=== PATIENT | female | born 1935 | race Caucasian/White ===

== ENCOUNTER 2017-08-08 19:49 | Inpatient (IN) | payer MEDICARE, MEDICAID ==
[~2017-08-08] VITALS: Ht 147.3 cm; Wt 51.7 kg
[2017-08-08] MEDS ORDERED: AMIO400T5 PO (20:09)
[2017-08-08] MEDS ORDERED: FLUT1BLS IH (20:09)
[2017-08-08] MEDS ORDERED: ACET325T53 PO (20:09)
[2017-08-08] MEDS ORDERED: TOPI50TA PO (20:09)
[2017-08-08] MEDS ORDERED: OXCA150T5 PO (20:09)
[2017-08-08] MEDS ORDERED: CARV3.12 PO (20:09)
[2017-08-08] MEDS ORDERED: ASPI81TA31 PO (20:09)
[2017-08-08] MEDS ORDERED: MELA3TAB PO (20:09)
[2017-08-08] MEDS ORDERED: MAGN400O6 PO (20:09)
[2017-08-08] MEDS ORDERED: ENAL2.5T PO (20:09)
[2017-08-08] MEDS ORDERED: DOCU100C36 PO (20:09)
[2017-08-08] MEDS ORDERED: DONE5TAB7 PO (20:09)
[2017-08-08] MEDS ORDERED: CHOL100062 PO (20:09)
--- NOTE | 2017-08-08 20:09 | NUR ---
Pt margarita from [facility] for medical clearance prior to admission to MHU. Pt already place on a 5150. Pt ambulated to and from with steady shuffled gait. Pt now resting in position of comfort for self. No obvious signs of distress at this time.
--- NOTE | 2017-08-08 20:15 | NUR ---
Security at bedside to keep pt from wandering and re-direct to staying in bed
[2017-08-08 20:23] LABS: *BILIRUBIN,URIN NEGATIVE (NEGATIVE); *BLOOD, URINE 2+ (NEGATIVE); *CLARITY,URINE CLOUDY (CLEAR); *COLOR,URINE YELLOW (YELLOW); *KETONES,URINE NEGATIVE (NEGATIVE); *PROTEIN,URINE 1+ (NEGATIVE); *UROBILINOGEN,URINE 0.2 E.U./dl (NORMAL); LEUKOCYTE ESTERASE ,URINE 1+ (NEGATIVE); NITRITE, URINE NEGATIVE (NEGATIVE); UGLUCOSE NEGATIVE (NEGATIVE)
[2017-08-08 20:25] LABS: BASOPHILS # (AUTO) 0.1 K/uL (0.0-8.0); EOSINOPHILS # (AUTO) 0.1 K/uL (0.0-0.7); EOSINOPHILS % (AUTO) 2.5 % (0.0-7.0); HEMATOCRIT 33.3 % (31.2-41.9); HEMOGLOBIN 11.2 g/dL (10.9-14.3); LYMPHOCYTES # (AUTO) 0.8 K/uL (20.0-40.0); LYMPHOCYTES % (AUTO) 13.8 % (20.5-51.5); MEAN CORPUSCULAR HEMOGLOBIN 31.7 uug (24.7-32.8); MEAN CORPUSCULAR HGB CONC 34 g/dL (32.3-35.6); MEAN CORPUSCULAR VOLUME 94.3 fL (75.5-95.3); MONOCYTES # (AUTO) 0.4 K/uL (2.0-10.0); MONOCYTES % (AUTO) 7.3 % (0.0-11.0); NEUTROPHILS # (AUTO) 4.2 K/uL (1.8-8.9); NEUTROPHILS % (AUTO) 75.4 % (38.5-71.5); PLATELET COUNT (AUTO) 131 K/uL (179-408); RED BLOOD CELL COUNT(AUTO) 3.53 MIL/uL (3.63-4.92); WHITE BLOOD COUNT (AUTO) 5.6 K/uL (3.8-11.8)
[2017-08-08 20:34] LABS: BACTERIA,URINE MANY /HPF (NONE SEEN); SQUAMOUS EPITHELIAL CELL,UR MANY /HPF (NONE SEEN)
[2017-08-08 20:36] LABS: ALANINE AMINOTRANSFERASE 20 U/L (14-59); ALKALINE PHOSPHATASE 62 U/L (50-136); ASPARTATE AMINOTRANSFERASE 17 U/L (15-37); BILIRUBIN,DIRECT 0.1 mg/dL (0.0-0.2); BILIRUBIN,TOTAL 0.3 mg/dL (0.2-1.0); CARBON DIOXIDE 28 mmol/L (21-32); CHLORIDE 102 mmol/L (98-107); CREATININE 1.2 mg/dL (0.6-1.3); GLUCOSE 106 mg/dL (74-106); TOTAL PROTEIN, SERUM 7.1 g/dL (6.4-8.2); UREA NITROGEN, BLOOD 29 mg/dL (7-18)
[2017-08-08 20:37] LABS: ACETAMINOPHEN < 2.0 ug/mL (10-30)
[2017-08-08 20:39] LABS: ETHANOL < 3 MG/DL (0-0)
[2017-08-08 20:46] LABS: *AMPHETAMINE, URINE NEGATIVE (NEGATIVE); *BARBITURATE, URINE NEGATIVE (NEGATIVE); *CANNABINOID, URINE NEGATIVE (NEGATIVE); *COCCAINE, URINE NEGATIVE (NEGATIVE); *OPIATE, URINE NEGATIVE (NEGATIVE); *PHENCYCLIDINE SCREEN,URINE NEGATIVE (NEGATIVE)
[2017-08-08] MEDS ORDERED: LEVOFLOXACIN 750 MG TABLET PO ONE (21:00)
--- NOTE | 2017-08-08 21:05 | NUR ---
Pt medically cleared for admission. Attempted to call report, RN unable at this time awaiting call back
[2017-08-08] MEDS ORDERED: LEVOFLOXACIN 750 MG TABLET ONE (21:18)
--- NOTE | 2017-08-08 21:23 | NUR ---
Report called to SINTIA Abarca. Preparing to transfer pt to the floor
--- NOTE | 2017-08-08 22:40 | NUR ---
GPS:Admitted 82 year old [place] female regionally from [facility] for medical clearance prior to admission to MHU.patient arrived via w/c from er via er staff. Pt already place on a 5150. a/o x1 to name only. Pt ambulated to and from br with steady shuffled gait. Pt now resting in position of comfort for self. No obvious signs of distress at this time. v/s wnl. daughter ariadna made aware. assisted patient in bed. continue monitoring for safety.
[2017-08-08 23:43] VITALS: BP 116/52
[2017-08-08] MEDS ORDERED: MAGNESIUM HYDROXIDE 30 ML LIQUID UDC PO PRN (23:45)
[2017-08-08] MEDS ORDERED: MAG HYDROX/AL HYDROX/SIMETH 30 ML LIQUID UDC PO PRN (23:45)
[2017-08-08] MEDS ORDERED: TEMAZEPAM 7.5 MG CAPSULE PO PRN (23:45)
[2017-08-09] MEDS: ACETAMINOPHEN 325 MG TABLET PO PRN ×3 (00:30→20:34)
[2017-08-09] MEDS ORDERED: ACETAMINOPHEN 325 MG TABLET ONE (00:46)
[2017-08-09] MEDS ORDERED: TEMAZEPAM 7.5 MG CAPSULE ONE (00:46)
--- NOTE | 2017-08-09 06:52 | NUR ---
GPS: REMAIN CONFUSED. SLEPT 6 HRS THROUGH THE NIGHT. REFUSED SHOWERED THIS MORNING. CONTINENT OF B+B. NO AGITATION NOTED AT THIS TIME. RESTING IN HER ROOM COMFORTABLY.
[2017-08-09 07:30] VITALS: BP 106/46
[2017-08-09] MEDS: CARVEDILOL 3.125 MG TABLET PO SCH ×2 (08:00→17:09)
[2017-08-09] MEDS: DOCUSATE SODIUM 100 MG CAPSULE PO SCH ×2 (08:03→16:05)
[2017-08-09] MEDS: ASPIRIN 81 MG TAB.CHEW PO SCH (08:03)
[2017-08-09] MEDS: AMIODARONE HCL 200 MG TABLET PO SCH (08:04)
[2017-08-09] MEDS: CHOLECALCIFEROL 1,000 UNIT TABLET PO SCH (08:04)
[2017-08-09] MEDS: ENALAPRIL 2.5 MG TABLET PO SCH (08:04)
[2017-08-09] MEDS: FLUTICASONE/VILANTEROL 1 EACH BLST.W.DEV IH SCH (08:22)
--- NOTE | 2017-08-09 08:29 | NUR ---
pt received walking in the hallway c/o headache ,alert to her self .v/s are stable ,all needs are met ,we will continue to monitor
[2017-08-09] MEDS ORDERED: Medication Not On Formulary EA (Amiodarone Hcl (Cordarone) 400 MG) PO SCH (09:00)
[2017-08-09] MEDS ORDERED: INSULIN REGULAR, HUMAN 300 UNIT/3 ML VIAL SQ PRN (10:15)
[2017-08-09] MEDS ORDERED: CEPHALEXIN MONOHYDRATE 500 MG CAPSULE PO SCH (10:15)
[2017-08-09] MEDS ORDERED: DEXTROSE 50% 50 ML DISP.SYRIN IV PRN (10:15)
[2017-08-09] MEDS: TOPIRAMATE 25 MG TABLET PO SCH ×3 (10:55→16:05)
[2017-08-09] MEDS: QUETIAPINE FUMARATE 25 MG TABLET PO SCH ×3 (10:55→16:05)
[2017-08-09] MEDS: OXCARBAZEPINE 150 MG TABLET PO SCH ×3 (10:55→16:05)
[2017-08-09] MEDS: BLOOD SUGAR DIAGNOSTIC 1 EACH STRIP VI SCH ×3 (11:13→20:33)
[2017-08-09] MEDS: CEPHALEXIN MONOHYDRATE 250 MG CAPSULE PO SCH ×3 (11:38→21:28)
[2017-08-09 15:00] VITALS: BP 122/46
[2017-08-09 20:00] VITALS: BP 136/60
[2017-08-09] MEDS: DONEPEZIL 5 MG TABLET PO SCH (20:33)
--- NOTE | 2017-08-09 20:34 | NUR ---
GPS: PATIENT C/O HEADACHE. TYLENOL 650 MG PO GIVEN.
[2017-08-09] MEDS: MELATONIN 3 MG TABLET PO SCH (20:54)
[2017-08-10] MEDS: CEPHALEXIN MONOHYDRATE 250 MG CAPSULE PO SCH ×3 (06:07→21:39)
--- NOTE | 2017-08-10 06:30 | NUR ---
GPS: REMAIN CONFUSED. SLEPT 5 HRS THROUGH THE NIGHT AFTER SLEEPING MEDICATION GIVEN. REFUSED SHOWERED THIS MORNING. CONTINENT OF B+B. NO AGITATION NOTED AT THIS TIME. RESTING IN HER ROOM COMFORTABLY.
[2017-08-10] MEDS: BLOOD SUGAR DIAGNOSTIC 1 EACH STRIP VI SCH ×3 (06:39→16:30)
[2017-08-10 07:30] VITALS: BP 126/49
[2017-08-10] MEDS: CARVEDILOL 3.125 MG TABLET PO SCH ×2 (08:00→17:13)
[2017-08-10] MEDS: TOPIRAMATE 25 MG TABLET PO SCH ×3 (08:48→17:14)
[2017-08-10] MEDS: QUETIAPINE FUMARATE 25 MG TABLET PO SCH ×3 (08:48→17:10)
[2017-08-10] MEDS: CHOLECALCIFEROL 1,000 UNIT TABLET PO SCH (08:48)
[2017-08-10] MEDS: AMIODARONE HCL 200 MG TABLET PO SCH (08:50)
[2017-08-10] MEDS: ASPIRIN 81 MG TAB.CHEW PO SCH (08:50)
[2017-08-10] MEDS: DOCUSATE SODIUM 100 MG CAPSULE PO SCH ×2 (08:50→17:14)
[2017-08-10] MEDS: OXCARBAZEPINE 150 MG TABLET PO SCH ×3 (08:56→17:14)
[2017-08-10] MEDS: FLUTICASONE/VILANTEROL 1 EACH BLST.W.DEV IH SCH (08:58)
[2017-08-10] MEDS: ENALAPRIL 2.5 MG TABLET PO SCH (09:00)
[2017-08-10] MEDS: ACETAMINOPHEN 325 MG TABLET PO PRN (09:36)
[2017-08-10] MEDS: CLONAZEPAM 0.5 MG TABLET PO PRN (13:09)
[2017-08-10 20:44] VITALS: BP 113/50
[2017-08-10] MEDS: DONEPEZIL 5 MG TABLET PO SCH (21:31)
[2017-08-10] MEDS: MELATONIN 3 MG TABLET PO SCH (21:31)
[2017-08-11] MEDS: CEPHALEXIN MONOHYDRATE 250 MG CAPSULE PO SCH ×3 (06:11→20:01)
[2017-08-11] MEDS: BLOOD SUGAR DIAGNOSTIC 1 EACH STRIP VI SCH (06:40)
[2017-08-11 07:30] VITALS: BP 134/62
[2017-08-11 07:32] LABS: BASOPHILS % (AUTO) 1.3 % (0.0-2.0); EOSINOPHILS # (AUTO) 0.2 K/uL (0.0-0.7); EOSINOPHILS % (AUTO) 4.7 % (0.0-7.0); HEMATOCRIT 33.4 % (31.2-41.9); HEMOGLOBIN 11.3 g/dL (10.9-14.3); LYMPHOCYTES # (AUTO) 1.2 K/uL (20.0-40.0); LYMPHOCYTES % (AUTO) 31.6 % (20.5-51.5); MEAN CORPUSCULAR HEMOGLOBIN 31.7 uug (24.7-32.8); MEAN CORPUSCULAR HGB CONC 34 g/dL (32.3-35.6); MONOCYTES # (AUTO) 0.3 K/uL (2.0-10.0); MONOCYTES % (AUTO) 7.6 % (0.0-11.0); NEUTROPHILS % (AUTO) 54.8 % (38.5-71.5); PLATELET COUNT (AUTO) 118 K/uL (179-408); RED BLOOD CELL COUNT(AUTO) 3.56 MIL/uL (3.63-4.92); WHITE BLOOD COUNT (AUTO) 3.7 K/uL (3.8-11.8)
[2017-08-11 07:50] LABS: ALANINE AMINOTRANSFERASE 17 U/L (14-59); ALKALINE PHOSPHATASE 56 U/L (50-136); ASPARTATE AMINOTRANSFERASE 16 U/L (15-37); BILIRUBIN,TOTAL 0.3 mg/dL (0.2-1.0); CARBON DIOXIDE 28 mmol/L (21-32); CHLORIDE 99 mmol/L (98-107); GLUCOSE 97 mg/dL (74-106); MAGNESIUM 2.1 mg/dL (1.8-2.4); PHOSPHOROUS 3.9 mg/dL (2.5-4.9); POTASSIUM 4.3 mmol/L (3.5-5.1); TOTAL PROTEIN, SERUM 6.5 g/dL (6.4-8.2); UREA NITROGEN, BLOOD 23 mg/dL (7-18)
[2017-08-11] MEDS: CARVEDILOL 3.125 MG TABLET PO SCH ×3 (08:00→17:16)
[2017-08-11] MEDS: QUETIAPINE FUMARATE 25 MG TABLET PO SCH ×4 (08:40→16:56)
[2017-08-11] MEDS: OXCARBAZEPINE 150 MG TABLET PO SCH ×4 (08:40→16:56)
[2017-08-11] MEDS: CHOLECALCIFEROL 1,000 UNIT TABLET PO SCH (08:40)
[2017-08-11] MEDS: DOCUSATE SODIUM 100 MG CAPSULE PO SCH ×3 (08:41→16:56)
[2017-08-11] MEDS: AMIODARONE HCL 200 MG TABLET PO SCH ×2 (08:41→09:00)
[2017-08-11] MEDS: ASPIRIN 81 MG TAB.CHEW PO SCH ×2 (08:41→09:00)
[2017-08-11] MEDS: ENALAPRIL 2.5 MG TABLET PO SCH (08:44)
[2017-08-11] MEDS: TOPIRAMATE 25 MG TABLET PO SCH ×4 (08:44→16:56)
[2017-08-11] MEDS: FLUTICASONE/VILANTEROL 1 EACH BLST.W.DEV IH SCH (08:44)
--- NOTE | 2017-08-11 15:19 | NUR ---
Initial DC Plan: Patient currently resides at [facility] [[address] [place] [address]; ]. ROSALINDA spoke with Emily at [facility] who stated the facility would prefer the patient did not return upon discharge. ROSALINDA will follow up with MD, patient, and patient's daughter Marilyn [[phone]] to discuss most appropriate discharge plans. SW will form a safe and proper discharge.
--- NOTE | 2017-08-11 15:26 | NUR ---
Firearms Reporting: ROSALINDA submitted Mental Health Report to [employer] on 08/11.
[2017-08-11 15:53] VITALS: BP 120/49
[2017-08-11] MEDS: DONEPEZIL 5 MG TABLET PO SCH (19:59)
[2017-08-11] MEDS: MELATONIN 3 MG TABLET PO SCH (19:59)
[2017-08-11 20:00] VITALS: BP 112/48
[2017-08-12] MEDS: CEPHALEXIN MONOHYDRATE 250 MG CAPSULE PO SCH ×4 (06:00→22:00)
[2017-08-12] MEDS: BLOOD SUGAR DIAGNOSTIC 1 EACH STRIP VI SCH (06:39)
[2017-08-12 07:30] VITALS: BP 139/55
[2017-08-12] MEDS: CARVEDILOL 3.125 MG TABLET PO SCH ×2 (08:00→17:24)
[2017-08-12] MEDS: TOPIRAMATE 25 MG TABLET PO SCH ×3 (08:50→17:00)
[2017-08-12] MEDS: AMIODARONE HCL 200 MG TABLET PO SCH (08:50)
[2017-08-12] MEDS: QUETIAPINE FUMARATE 25 MG TABLET PO SCH ×3 (08:50→16:34)
[2017-08-12] MEDS: FLUTICASONE/VILANTEROL 1 EACH BLST.W.DEV IH SCH (08:50)
[2017-08-12] MEDS: DOCUSATE SODIUM 100 MG CAPSULE PO SCH ×2 (08:50→17:00)
[2017-08-12] MEDS: ASPIRIN 81 MG TAB.CHEW PO SCH (08:50)
[2017-08-12] MEDS: OXCARBAZEPINE 150 MG TABLET PO SCH ×3 (08:51→17:00)
[2017-08-12] MEDS: ENALAPRIL 2.5 MG TABLET PO SCH (08:51)
[2017-08-12] MEDS: CHOLECALCIFEROL 1,000 UNIT TABLET PO SCH (08:51)
[2017-08-12] MEDS: CLONAZEPAM 0.5 MG TABLET PO PRN (16:33)
--- NOTE | 2017-08-12 18:25 | NUR ---
SPOKE WITH PATIENT'DAUGHTER Marilyn to obtain authorization of Detain and treat for LPS conservatee.still waiting for her to bring in.
[2017-08-12 20:10] VITALS: BP 93/51
[2017-08-12] MEDS: MELATONIN 3 MG TABLET PO SCH (21:00)
[2017-08-12] MEDS: DONEPEZIL 5 MG TABLET PO SCH (21:00)
--- NOTE | 2017-08-12 22:33 | NUR ---
PATIENT RECEIVED IN BED AWAKE. PATIENT ALERT/ORIENTED X1.FORGETFUL,CONFUSED,DISORIENTED,ANXIOUS AND RESTLESS UPON APPROACH.PATIENT IS EASILY ANGRY/ANXIOUS/IRRITABLE WHEN REDIRECTED.REQUIRES FREQUENT.REALITY, ORIENTATION, AND FREQUENT REDIRECTION.UNCOOPERATIVE WITH CARE. NON COMPLAINT WITH HS MEDICATION EXPLAINED THE IMPORTANCE OF TAKING MEDICATION CONTINUES TO REFUSE. BED IN LOWEST POSITION, BED LOCKED, AND BED ALARM ON WHILE IN BED. .
[2017-08-13] MEDS: BLOOD SUGAR DIAGNOSTIC 1 EACH STRIP VI SCH ×2 (06:00→08:59)
[2017-08-13] MEDS: ACETAMINOPHEN 325 MG TABLET PO PRN ×2 (06:38→18:28)
[2017-08-13] MEDS: CEPHALEXIN MONOHYDRATE 250 MG CAPSULE PO SCH ×3 (06:39→22:00)
--- NOTE | 2017-08-13 07:31 | NUR ---
ACCUCHECK RENDERED AT 0600 WITH RESULTS OF 93MG/DL, UNABLE TO SCAN ON EMAR
[2017-08-13 08:00] VITALS: BP 122/51
[2017-08-13] MEDS: ASPIRIN 81 MG TAB.CHEW PO SCH (08:27)
[2017-08-13] MEDS: OXCARBAZEPINE 150 MG TABLET PO SCH ×3 (08:27→18:10)
[2017-08-13] MEDS: QUETIAPINE FUMARATE 25 MG TABLET PO SCH ×3 (08:27→18:10)
[2017-08-13] MEDS: DOCUSATE SODIUM 100 MG CAPSULE PO SCH ×2 (08:27→18:10)
[2017-08-13] MEDS: CHOLECALCIFEROL 1,000 UNIT TABLET PO SCH (08:27)
[2017-08-13] MEDS: TOPIRAMATE 25 MG TABLET PO SCH ×3 (08:27→18:10)
[2017-08-13] MEDS: AMIODARONE HCL 200 MG TABLET PO SCH (08:32)
[2017-08-13] MEDS: FLUTICASONE/VILANTEROL 1 EACH BLST.W.DEV IH SCH (08:35)
[2017-08-13] MEDS: ENALAPRIL 2.5 MG TABLET PO SCH (08:37)
--- NOTE | 2017-08-13 09:20 | NUR ---
AGITATED RESTLESS INTRUSIVE HYPERVOCAL ANNOYED AT NOT BEING ABLE TO REACH DAUGHTER DESPITE HER CALLING AND LEAVING MESSAGES UNABLE TO REDIRECT MEDICATED WITH KLONOPIN ORDERED HAD MUCH DIFFICULTY TAKING THE MEDICINES STATED DOES NOT NEED ANY MEDICATIONS AT THIS TIME.
[2017-08-13] MEDS: CLONAZEPAM 0.5 MG TABLET PO PRN ×2 (09:25→21:21)
--- NOTE | 2017-08-13 14:02 | NUR ---
PATIENT IS AWAKE AT THIS TIME BUT REFUSED TO TAKE HER DUE MEDICATIONS AND WENT BACK TO BED AGAIN STATED THAT WE ARE GIVING HER TOO MANY MEDICATIONS.
[2017-08-13 15:50] VITALS: BP 141/67
--- NOTE | 2017-08-13 18:28 | NUR ---
MEDICATED WITH TYLENOL FOR HEADACHE PER HER REQUEST.PATIENT IS WALKING BACK AND FORTH CONFUSED AND DISORIENTED AT THIS TIME.
[2017-08-13 19:00] VITALS: BP 111/56
[2017-08-13] MEDS: MELATONIN 3 MG TABLET PO SCH (20:11)
[2017-08-13] MEDS: DONEPEZIL 5 MG TABLET PO SCH (20:11)
[2017-08-13 21:59] VITALS: BP 121/66
[2017-08-14] MEDS: BLOOD SUGAR DIAGNOSTIC 1 EACH STRIP VI SCH (06:00)
[2017-08-14] MEDS: CEPHALEXIN MONOHYDRATE 250 MG CAPSULE PO SCH ×3 (06:00→21:23)
--- NOTE | 2017-08-14 06:42 | NUR ---
ACCUCHECK RENDERED AT 0640 WITH RESULTS OF 104 MG/DL, UNABLE TO SCAN ON EMAR
[2017-08-14] MEDS: ASPIRIN 81 MG TAB.CHEW PO SCH (09:00)
[2017-08-14] MEDS: ENALAPRIL 2.5 MG TABLET PO SCH (09:00)
[2017-08-14] MEDS: FLUTICASONE/VILANTEROL 1 EACH BLST.W.DEV IH SCH (09:00)
[2017-08-14] MEDS: AMIODARONE HCL 200 MG TABLET PO SCH (09:00)
[2017-08-14] MEDS: DOCUSATE SODIUM 100 MG CAPSULE PO SCH ×2 (09:00→17:00)
[2017-08-14] MEDS: CHOLECALCIFEROL 1,000 UNIT TABLET PO SCH (09:00)
[2017-08-14] MEDS: QUETIAPINE FUMARATE 25 MG TABLET PO SCH ×3 (09:00→17:52)
[2017-08-14 10:58] VITALS: BP 94/50
[2017-08-14] MEDS: OXCARBAZEPINE 150 MG TABLET PO SCH ×3 (11:12→17:53)
[2017-08-14] MEDS: ACETAMINOPHEN 325 MG TABLET PO PRN ×2 (11:12→19:53)
[2017-08-14] MEDS: TOPIRAMATE 25 MG TABLET PO SCH ×3 (11:13→17:53)
--- NOTE | 2017-08-14 13:19 | NUR ---
Gps/Agricultural Plow Operator- Hesitantcy in taking her routine medications, anxious, pacing back and forth the hallway, pushing and checking doors. B/P re checked 130/65 HR 69, occ. dry coughing noted. Safety reviewed and emphasized.
[2017-08-14 15:00] VITALS: BP 120/77
--- NOTE | 2017-08-14 18:35 | NUR ---
Gps/Emery Grinder- Constantly on the phone intrusive , difficulty redirecting patient, wanting to to call and talk to her daughter Marilyn or her son Matthew, after she just talked to them. Anxious, constant redirections.
[2017-08-14 20:00] VITALS: BP 110/51
[2017-08-14] MEDS: MELATONIN 3 MG TABLET PO SCH (21:59)
[2017-08-14] MEDS: DONEPEZIL 5 MG TABLET PO SCH (21:59)
--- NOTE | 2017-08-14 22:00 | NUR ---
received to care, appearing anxious, pacing the hallway, needy, and difficult to redirect. PRN tylenol was given at 1952 for headache, which was relieved, by 2099. she was also selective with her medications, taking only keflex, before going to bed. as of 2199, she appears to be asleep. no distress noted. will continue to monitor closely.
[2017-08-15] MEDS: BLOOD SUGAR DIAGNOSTIC 1 EACH STRIP VI SCH (06:00)
[2017-08-15] MEDS: CEPHALEXIN MONOHYDRATE 250 MG CAPSULE PO SCH ×2 (06:28→14:00)
--- NOTE | 2017-08-15 06:44 | NUR ---
AM accucheck is 94.
--- NOTE | 2017-08-15 06:49 | NUR ---
slept 9.5 hours
[2017-08-15 07:30] VITALS: BP 130/79
[2017-08-15] MEDS: ENALAPRIL 2.5 MG TABLET PO SCH (09:00)
[2017-08-15] MEDS: CHOLECALCIFEROL 1,000 UNIT TABLET PO SCH (09:00)
[2017-08-15] MEDS: DOCUSATE SODIUM 100 MG CAPSULE PO SCH ×2 (09:00→17:00)
[2017-08-15] MEDS: FLUTICASONE/VILANTEROL 1 EACH BLST.W.DEV IH SCH (09:00)
[2017-08-15] MEDS: QUETIAPINE FUMARATE 25 MG TABLET PO SCH ×3 (09:00→17:00)
[2017-08-15] MEDS: AMIODARONE HCL 200 MG TABLET PO SCH (09:00)
[2017-08-15] MEDS: OXCARBAZEPINE 150 MG TABLET PO SCH ×3 (09:00→17:00)
[2017-08-15] MEDS: TOPIRAMATE 25 MG TABLET PO SCH ×3 (09:00→17:00)
[2017-08-15] MEDS: ASPIRIN 81 MG TAB.CHEW PO SCH (09:00)
--- NOTE | 2017-08-15 12:24 | NUR ---
DC Note: Patient will be discharged to [facility] [[address] [place] [address]; ] via ambulance. Spoke with patient's daughter/conservator, Marilyn ([phone]) who is aware and agreeable with discharge plans. Patient is aware and agreeable with discharge plans. Patient will follow-up at the facility with Dr. Thompson (Transportation Services Representative) and Dr. Sam (Psychiatrist).
[2017-08-15 15:25] VITALS: BP 143/62
--- NOTE | 2017-08-15 18:20 | NUR ---
Pt left unit with all noted belongings. No aggressive or combative behavior. Very confused and uncooperative. Extensive redirection required and prompting to sit on EMT gurney. V/S stable. Denies pain or discomfort at this time. Left with all noted belongings and paperwork. In no acute distress.
== END 2017-08-15 18:22 | DRG 885 ==
LOC: ER 19:49 → GPS 22:24
PROVIDERS: ADMIT Psychiatry & Neurology Psychiatry; ATTEND Internal Medicine
DX: F31.9 Bipolar disorder, unspecified (principal); F02.81 Dementia in other diseases classified elsewhere, unspecified severity, with behavioral disturbance; E11.65 Type 2 diabetes mellitus with hyperglycemia; E11.40 Type 2 diabetes mellitus with diabetic neuropathy, unspecified; D69.6 Thrombocytopenia, unspecified; G30.9 Alzheimer's disease, unspecified; N39.0 Urinary tract infection, site not specified; F23 Brief psychotic disorder; I48.0 Paroxysmal atrial fibrillation; Z96.21 Cochlear implant status; E78.5 Hyperlipidemia, unspecified; I25.119 Atherosclerotic heart disease of native coronary artery with unspecified angina pectoris; Z79.82 Long term (current) use of aspirin; Z79.899 Other long term (current) drug therapy; F17.200 Nicotine dependence, unspecified, uncomplicated; I11.9 Hypertensive heart disease without heart failure; F41.9 Anxiety disorder, unspecified; D72.819 Decreased white blood cell count, unspecified; J44.9 Chronic obstructive pulmonary disease, unspecified
CPT/HCPCS: 36415; 70030-TC; 71045; 80307; 83735; 84100; 84443; 85025; 87086; 93005; A4663; G0480; G0480-TC; J1815

== ENCOUNTER 2018-01-08 12:03 | Inpatient (IN) | payer MEDICARE, MEDICAID ==
[~2018-01-08] VITALS: Ht 152.4 cm; Wt 55.3 kg
[~2018-01-08 12:03] MED LIST: ACET325T53 PO; AMIO400T5 PO; ASPI81TA31 PO; CARV3.12 PO; CHOL100062 PO; DOCU100C36 PO; DONE5TAB7 PO; ENAL2.5T PO; FLUT1BLS IH; MAGN400O6 PO; MELA3TAB PO; OXCA150T5 PO; TOPI50TA PO
[2018-01-08] MEDS ORDERED: QUET50TA PO (12:28)
[2018-01-08] MEDS ORDERED: NA P133E RC (12:28)
[2018-01-08] MEDS ORDERED: MAG355OR18 PO (12:28)
[2018-01-08] MEDS ORDERED: CHOL20004 PO (12:28)
[2018-01-08] MEDS ORDERED: MULT-213 PO (12:28)
--- NOTE | 2018-01-08 12:33 | NUR ---
Pt is confused and agitated and constantly wondering out of room (4), no sitter available, security called for 1:1 observation for pt safety.
[2018-01-08 12:34] LABS: BASOPHILS % (AUTO) 1.2 % (0.0-2.0); EOSINOPHILS # (AUTO) 0.1 K/uL (0.0-0.7); EOSINOPHILS % (AUTO) 2.5 % (0.0-7.0); HEMATOCRIT 33.6 % (31.2-41.9); HEMOGLOBIN 11.5 g/dL (10.9-14.3); LYMPHOCYTES # (AUTO) 1.2 K/uL (20.0-40.0); LYMPHOCYTES % (AUTO) 28.9 % (20.5-51.5); MEAN CORPUSCULAR HEMOGLOBIN 32.6 uug (24.7-32.8); MEAN CORPUSCULAR HGB CONC 34 g/dL (32.3-35.6); MEAN CORPUSCULAR VOLUME 95.3 fL (75.5-95.3); MONOCYTES # (AUTO) 0.2 K/uL (2.0-10.0); MONOCYTES % (AUTO) 5.6 % (0.0-11.0); NEUTROPHILS # (AUTO) 2.6 K/uL (1.8-8.9); NEUTROPHILS % (AUTO) 61.8 % (38.5-71.5); PLATELET COUNT (AUTO) 167 K/uL (179-408); RED BLOOD CELL COUNT(AUTO) 3.52 MIL/uL (3.63-4.92); WHITE BLOOD COUNT (AUTO) 4.2 K/uL (3.8-11.8)
[2018-01-08 12:39] LABS: *BILIRUBIN,URIN NEGATIVE (NEGATIVE); *BLOOD, URINE Trace-intact (NEGATIVE); *CLARITY,URINE CLEAR (CLEAR); *COLOR,URINE YELLOW (YELLOW); *KETONES,URINE NEGATIVE (NEGATIVE); *PROTEIN,URINE NEGATIVE (NEGATIVE); *UROBILINOGEN,URINE 0.2 E.U./dl (NORMAL); LEUKOCYTE ESTERASE ,URINE 1+ (NEGATIVE); NITRITE, URINE NEGATIVE (NEGATIVE); UGLUCOSE NEGATIVE (NEGATIVE)
[2018-01-08 12:43] LABS: CARBON DIOXIDE 28 mmol/L (21-32); CHLORIDE 101 mmol/L (98-107); GLUCOSE 129 mg/dL (74-106); POTASSIUM 4.6 mmol/L (3.5-5.1); UREA NITROGEN, BLOOD 20 mg/dL (7-18)
[2018-01-08 12:48] LABS: ACETAMINOPHEN < 2.0 ug/mL (10-30); ALANINE AMINOTRANSFERASE 22 U/L (14-59); ALKALINE PHOSPHATASE 58 U/L (50-136); ASPARTATE AMINOTRANSFERASE 16 U/L (15-37); BILIRUBIN,DIRECT 0.1 mg/dL (0.0-0.2); BILIRUBIN,TOTAL 0.3 mg/dL (0.2-1.0); TOTAL PROTEIN, SERUM 6.8 g/dL (6.4-8.2)
[2018-01-08 12:52] LABS: ETHANOL < 3 MG/DL (0-0)
--- NOTE | 2018-01-08 12:52 | NUR ---
THA JACQUES WAS CALLED TO EVALUATE THE PT. CONCETTA IS 1 HOUR.
[2018-01-08 12:53] LABS: *AMPHETAMINE, URINE NEGATIVE (NEGATIVE); *BARBITURATE, URINE NEGATIVE (NEGATIVE); *CANNABINOID, URINE NEGATIVE (NEGATIVE); *COCCAINE, URINE NEGATIVE (NEGATIVE); *OPIATE, URINE NEGATIVE (NEGATIVE); *PHENCYCLIDINE SCREEN,URINE NEGATIVE (NEGATIVE)
[2018-01-08 12:55] LABS: BACTERIA,URINE FEW /HPF (NONE SEEN); RBC,URINE 0-3 /HPF (0-3); SQUAMOUS EPITHELIAL CELL,UR FEW /HPF (NONE SEEN)
--- NOTE | 2018-01-08 14:11 | NUR ---
THA JACQUES THE PET BUSINESS ANALYTICS ANALYST ARRIVED AND AT THE BEDSIDE.
[2018-01-08] MEDS ORDERED: HALOPERIDOL 0.5 MG TABLET PO ONE (14:30)
[2018-01-08] MEDS ORDERED: LORAZEPAM 0.5 MG TABLET PO ONE (14:30)
[2018-01-08] MEDS ORDERED: HALOPERIDOL LACTATE 5 MG/1 ML VIAL IM ONE (14:45)
[2018-01-08] MEDS ORDERED: LORAZEPAM 2 MG/1 ML VIAL IM ONE (14:45)
[2018-01-08] MEDS ORDERED: HALOPERIDOL LACTATE 5 MG/1 ML VIAL ONE (14:48)
[2018-01-08] MEDS ORDERED: LORAZEPAM 2 MG/1 ML VIAL ONE (14:49)
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
[2018-01-08] MEDS ORDERED: ACETAMINOPHEN 325 MG TABLET PO PRN (17:00)
[2018-01-08] MEDS ORDERED: MAGNESIUM HYDROXIDE 30 ML LIQUID UDC PO PRN (17:00)
[2018-01-08] MEDS ORDERED: MAG HYDROX/AL HYDROX/SIMETH 30 ML LIQUID UDC PO PRN (17:00)
--- NOTE | 2018-01-08 20:00 | NUR ---
RECEIVED PATIENT IN HER BED ASLEEP BUT EASILY AROUSABLE. SHE IS NOTED A/O X 1. NOTED CALM BUT UNCOOPERATIVE. REFUSED TO ANSWER QUESTIONS. SAFETY WAS EMPHASIS, BED AT LOWEST POSITION WITH WHEELS LOCKED AND SIDE RAILS UP X 3 AND BED ALARM ONE. WILL CONTINUE TO MONITOR CLOSELY.
[2018-01-08 21:03] VITALS: BP 118/52
[2018-01-09 07:30] VITALS: BP 105/38
[2018-01-09] MEDS: CLONAZEPAM 0.5 MG TABLET PO PRN ×2 (11:19→21:50)
--- NOTE | 2018-01-09 11:41 | NUR ---
Initial DC Plan: Patient currently resides at [facility] [[address] [place] [address]; ]. SW will follow up with facility to confirm if they can accept patient back at their facility. SW will follow up with MD, patient, and patient's daughter Marilyn [[phone]] to discuss most appropriate discharge plans. SW will form a safe and proper discharge.
[2018-01-09 14:26] VITALS: BP 121/59
[2018-01-09] MEDS ORDERED: FLEET ENEMA 133 ML BOTTLE RC PRN (15:00)
[2018-01-09 16:30] VITALS: BP 122/93
[2018-01-09] MEDS: DOCUSATE SODIUM 100 MG CAPSULE PO SCH (16:53)
[2018-01-09] MEDS: TOPIRAMATE 25 MG TABLET PO SCH ×2 (16:53→17:00)
[2018-01-09] MEDS: OXCARBAZEPINE 150 MG TABLET PO SCH ×2 (16:53→17:00)
[2018-01-09] MEDS: QUETIAPINE FUMARATE 25 MG TABLET PO SCH ×2 (16:57→17:00)
[2018-01-09] MEDS ORDERED: OLANZAPINE 10 MG VIAL IM ONE (18:00)
[2018-01-09 19:13] VITALS: BP 113/59
--- NOTE | 2018-01-09 19:16 | NUR ---
patient complained of chest pain, vitals stable, 113/59, HR 76, RR 16, 02 sat 96% room air, Temp 94.4. unable to scale pain. Addendum: 01/09/18 at 1916 by SULEMAN TUCKER RN stat EKG ordered.
[2018-01-09 20:00] VITALS: BP 115/52
[2018-01-09] MEDS: CEPHALEXIN MONOHYDRATE 500 MG CAPSULE PO SCH (20:20)
--- NOTE | 2018-01-09 20:20 | NUR ---
GPS: Pt.is anxious,restless,intrusive and repetitive. Constant re-direction provided by staff. Easily agitated when being re-directed. Poor insight to present situation. Needy and attention seeking also. Poor safety awareness. Safety emphasized. Will continue to monitor behavior for further escalation.
--- NOTE | 2018-01-09 20:25 | NUR ---
GPS: No further c/o chest pains verbalized. VSS.
[2018-01-09] MEDS ORDERED: DONEPEZIL 5 MG TABLET PO SCH (21:00)
[2018-01-09] MEDS: TEMAZEPAM 7.5 MG CAPSULE PO PRN (21:51)
[2018-01-09] MEDS ORDERED: LORAZEPAM 2 MG/1 ML VIAL IM ONE (22:15)
[2018-01-09] MEDS ORDERED: HALOPERIDOL LACTATE 5 MG/1 ML VIAL IM ONE (22:15)
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
--- NOTE | 2018-01-10 06:43 | NUR ---
GPS: Pt.still asleep at this time during rounds. In no acute resp.distress noted. Fall precautions observed. Bed alarm on for safety. Will continue to monitor.
[2018-01-10 07:30] VITALS: BP 101/49
--- NOTE | 2018-01-10 07:45 | NUR ---
RECEIVED AN 82 Y/O PATIENT IN HER BED ASLEEP BUT EASILY AROUSABLE. SHE IS NOTED A/O X 1. CALM BUT UNCOOPERATIVE. REFUSED TO ANSWER QUESTIONS. SAFETY WAS EMPHASIS, BED AT LOWEST POSITION WITH SIDE RAILS UP X 3 AND BED ALARM ONE. WILL CONTINUE TO MONITOR CLOSELY.
[2018-01-10] MEDS ORDERED: AMIODARONE HCL 200 MG PO SCH (09:00)
[2018-01-10] MEDS ORDERED: Medication Not On Formulary EA (Cholecalciferol (Vitamin D3) (Vitamin D CAPSULE) 2,000 U PO SCH (09:00)
[2018-01-10] MEDS ORDERED: Medication Not On Formulary EA (Multivitamins W-Minerals (Multivitamin With Minerals) 1 PO SCH (09:00)
[2018-01-10] MEDS: ENALAPRIL 2.5 MG TABLET PO SCH (09:00)
[2018-01-10] MEDS: QUETIAPINE FUMARATE 25 MG TABLET PO SCH ×3 (09:07→16:25)
[2018-01-10] MEDS: AMIODARONE HCL 200 MG TABLET PO SCH (09:07)
[2018-01-10] MEDS: ASPIRIN 81 MG TAB.CHEW PO SCH (09:08)
[2018-01-10] MEDS: CHOLECALCIFEROL 1,000 UNIT TABLET PO SCH (09:08)
[2018-01-10] MEDS: DOCUSATE SODIUM 100 MG CAPSULE PO SCH ×2 (09:08→16:25)
[2018-01-10] MEDS: OXCARBAZEPINE 150 MG TABLET PO SCH ×3 (09:08→16:25)
[2018-01-10] MEDS: CEPHALEXIN MONOHYDRATE 500 MG CAPSULE PO SCH ×2 (09:08→20:07)
[2018-01-10] MEDS: TOPIRAMATE 25 MG TABLET PO SCH ×3 (09:08→16:24)
[2018-01-10] MEDS: MULTIVIT, IRON, MIN NO. 8, FA TABLET PO SCH (09:09)
[2018-01-10] MEDS: FLUTICASONE/VILANTEROL 1 EACH BLST.W.DEV IH SCH (09:29)
--- NOTE | 2018-01-10 09:30 | NUR ---
PT RECEIVED BREAKFAST FOLLOWED BY ALL HER MEDICATION, PT WAS COMPLIANT.
--- NOTE | 2018-01-10 09:58 | NUR ---
MRSA SCREENING SWAB TAKEN AND SENT TO LAB.
--- NOTE | 2018-01-10 13:28 | NUR ---
pt had lunch in the activity room , tolerated well. then back to her bed
--- NOTE | 2018-01-10 14:44 | NUR ---
POWER SUPERINTENDENT, Romeo Guidry notified regarding patient A1C 6.0 with no new order
[2018-01-10] MEDS: CLONAZEPAM 0.5 MG TABLET PO PRN ×2 (15:19→22:25)
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
[2018-01-10 16:10] VITALS: BP 118/49
--- NOTE | 2018-01-10 19:16 | NUR ---
PATIENT REPORT GIVEN TO EVIDENCE TECHNICIANPIZZA CHEF
[2018-01-10 20:06] VITALS: BP 135/63
[2018-01-10] MEDS: TEMAZEPAM 7.5 MG CAPSULE PO PRN (20:44)
--- NOTE | 2018-01-11 07:00 | NUR ---
PATIENT RECEIVED ON BED ASLEEP. NO ACUTE DISTRESS NOTED. A AND O X 1. CAN BE INCOHERENT AND REPETITIVE AT TIMES. DID NOT GET MUCH SLEEP LAST NIGHT ONLY 4 HRS. PICKY WITH MEDICATIONS PER NIGHT SHIT. COMFORT MEASURES PROVIDED. WILL CONTINUE TO MONITOR CLOSELY.
[2018-01-11 07:30] VITALS: BP 105/48
[2018-01-11] MEDS: DOCUSATE SODIUM 100 MG CAPSULE PO SCH ×3 (08:28→17:34)
[2018-01-11] MEDS: AMIODARONE HCL 200 MG TABLET PO SCH (08:28)
[2018-01-11] MEDS: FLUTICASONE/VILANTEROL 1 EACH BLST.W.DEV IH SCH (08:28)
[2018-01-11] MEDS: CHOLECALCIFEROL 1,000 UNIT TABLET PO SCH ×2 (08:29→09:00)
[2018-01-11] MEDS: ASPIRIN 81 MG TAB.CHEW PO SCH (08:29)
[2018-01-11] MEDS: CEPHALEXIN MONOHYDRATE 500 MG CAPSULE PO SCH ×2 (08:29→21:00)
[2018-01-11] MEDS: OXCARBAZEPINE 150 MG TABLET PO SCH ×3 (08:45→17:34)
[2018-01-11] MEDS: QUETIAPINE FUMARATE 25 MG TABLET PO SCH ×3 (08:45→17:34)
[2018-01-11] MEDS: MULTIVIT, IRON, MIN NO. 8, FA TABLET PO SCH ×2 (08:45→09:00)
[2018-01-11] MEDS: TOPIRAMATE 25 MG TABLET PO SCH ×3 (08:45→17:33)
[2018-01-11] MEDS: ENALAPRIL 2.5 MG TABLET PO SCH (08:48)
[2018-01-11] MEDS: CLONAZEPAM 0.5 MG TABLET PO PRN (15:38)
[2018-01-11 16:31] VITALS: BP 123/69
--- NOTE | 2018-01-11 18:35 | NUR ---
PATIENT IN ACTIVITY ROOM. NO ACUTE DISTRESS NOTED. PATIENTS DAUGHTER AND NEPHEW CAME TO VISIT AROUND 1630. HARD TO REDIRECT. TOOK ALL DUE MEDS TODAY BUT CONTINUES TO BE PICKY WITH WHAT TO TAKE. NEEDS REINFORCEMENT ON SAFETY PRECS. ALL NEEDS ATTENDED AND ANTICIPATED. WILL CONTINUE TO MONITOR CLOSELY.
--- NOTE | 2018-01-11 20:00 | NUR ---
RECEIVED PATIENT IN THE HALLWAY, SHE IS NOTED A/O X 1. PACING THE HALLWAY, DISORGANIZED, TANGENTIAL AND LABILE; SHE IS FIXED ON LEAVING THE HOSPITAL. SHE IS DIFFICULT TO BE REDIRECTED. POOR INSIGHT AND JUDGMENT NOTED INTO THE REASON FOR HER ADMISSION TO MHU. SAFETY WAS EMPHASIS, BED AT LOWEST POSITION WITH WHEELS LOCKED AND FREQUENT HEAD CHECKS. WILL CONTINUE TO MONITOR.
[2018-01-11 20:27] VITALS: BP 105/51
--- NOTE | 2018-01-11 22:00 | NUR ---
PATIENT REFUSED KEFLEX 500MG PO Q12HRS, MULTIPLE REDIRECTION GIVEN, HOWEVER, INEFFECTIVE. PATIENT NOTED EASILY IRRITABLE. WILL CONTINUE TO MONITOR CLOSELY.
[2018-01-12 07:30] VITALS: BP 139/57
[2018-01-12] MEDS: AMIODARONE HCL 200 MG TABLET PO SCH (09:00)
[2018-01-12] MEDS: ENALAPRIL 2.5 MG TABLET PO SCH (09:00)
[2018-01-12] MEDS: OXCARBAZEPINE 150 MG TABLET PO SCH ×3 (09:00→18:00)
[2018-01-12] MEDS: TOPIRAMATE 25 MG TABLET PO SCH ×3 (09:00→18:01)
[2018-01-12] MEDS: ASPIRIN 81 MG TAB.CHEW PO SCH (09:00)
[2018-01-12] MEDS: CHOLECALCIFEROL 1,000 UNIT TABLET PO SCH (09:00)
[2018-01-12] MEDS: MULTIVIT, IRON, MIN NO. 8, FA TABLET PO SCH (09:00)
[2018-01-12] MEDS: CEPHALEXIN MONOHYDRATE 500 MG CAPSULE PO SCH ×2 (09:00→20:38)
[2018-01-12] MEDS: DOCUSATE SODIUM 100 MG CAPSULE PO SCH ×2 (09:00→18:00)
[2018-01-12] MEDS: FLUTICASONE/VILANTEROL 1 EACH BLST.W.DEV IH SCH (09:17)
[2018-01-12] MEDS: QUETIAPINE FUMARATE 25 MG TABLET PO SCH ×2 (09:20→13:17)
[2018-01-12] MEDS: CLONAZEPAM 0.5 MG TABLET PO PRN (15:00)
[2018-01-12 15:28] VITALS: BP 110/59
--- NOTE | 2018-01-12 15:40 | NUR ---
SBAR report received this morning. Pt assessed, alert and oriented x1. Pt mood continues to be suspicious, and disorganized in appearance. Pt is reluctant to comply with medication administration and care at times, refusing most morning medications. Pt refuses to participate with group. Pt paces halls independently with steady gait. Pt became agitated and combative towards staff. PRN medication administered as ordered. All comfort and safety needs met. Pt safety emphasized, and able to CFS, while expressing strong desire to leave. Pt denies SI/HI/VH/AH at this time. Will continue to monitor.
[2018-01-12] MEDS ORDERED: QUETIAPINE FUMARATE 25 MG TABLET PO SCH (17:00)
[2018-01-12] MEDS: QUETIAPINE FUMARATE 100 MG TABLET PO SCH (18:01)
[2018-01-12 21:28] VITALS: BP 97/58
--- NOTE | 2018-01-13 03:35 | NUR ---
GPS: Asleep at this time. Fall precautions observed. In no acute distress noted. Bed alarm on for safety. Reality re-orientation provided prn.
[2018-01-13 07:30] VITALS: BP 113/50
[2018-01-13] MEDS: AMIODARONE HCL 200 MG TABLET PO SCH (09:00)
[2018-01-13] MEDS: DOCUSATE SODIUM 100 MG CAPSULE PO SCH ×2 (09:00→16:18)
[2018-01-13] MEDS: FLUTICASONE/VILANTEROL 1 EACH BLST.W.DEV IH SCH (09:00)
[2018-01-13] MEDS: ENALAPRIL 2.5 MG TABLET PO SCH (09:00)
[2018-01-13] MEDS: MULTIVIT, IRON, MIN NO. 8, FA TABLET PO SCH (09:00)
[2018-01-13] MEDS: ASPIRIN 81 MG TAB.CHEW PO SCH (09:00)
[2018-01-13] MEDS: CHOLECALCIFEROL 1,000 UNIT TABLET PO SCH (09:00)
[2018-01-13] MEDS: CEPHALEXIN MONOHYDRATE 500 MG CAPSULE PO SCH ×2 (09:07→20:07)
[2018-01-13] MEDS: OXCARBAZEPINE 150 MG TABLET PO SCH ×3 (09:08→16:18)
[2018-01-13] MEDS: TOPIRAMATE 25 MG TABLET PO SCH ×3 (09:08→16:18)
[2018-01-13] MEDS: QUETIAPINE FUMARATE 100 MG TABLET PO SCH ×2 (09:08→16:18)
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
[2018-01-13] MEDS: CLONAZEPAM 0.5 MG TABLET PO PRN (12:47)
[2018-01-13 15:07] VITALS: BP 93/49
[2018-01-13 15:36] VITALS: BP 115/51
[2018-01-13 20:00] VITALS: BP 128/60
[2018-01-13] MEDS: TEMAZEPAM 7.5 MG CAPSULE PO PRN (20:51)
[2018-01-14 07:30] VITALS: BP 122/48
[2018-01-14] MEDS: OXCARBAZEPINE 150 MG TABLET PO SCH ×3 (08:28→16:09)
[2018-01-14] MEDS: QUETIAPINE FUMARATE 100 MG TABLET PO SCH ×2 (08:28→16:09)
[2018-01-14] MEDS: ASPIRIN 81 MG TAB.CHEW PO SCH (08:28)
[2018-01-14] MEDS: TOPIRAMATE 25 MG TABLET PO SCH ×3 (08:28→16:09)
[2018-01-14] MEDS: DOCUSATE SODIUM 100 MG CAPSULE PO SCH ×2 (08:29→16:14)
[2018-01-14] MEDS: CEPHALEXIN MONOHYDRATE 500 MG CAPSULE PO SCH (08:29)
[2018-01-14] MEDS: CHOLECALCIFEROL 1,000 UNIT TABLET PO SCH (08:29)
[2018-01-14] MEDS: AMIODARONE HCL 200 MG TABLET PO SCH (08:30)
[2018-01-14] MEDS: ENALAPRIL 2.5 MG TABLET PO SCH (08:30)
[2018-01-14] MEDS: MULTIVIT, IRON, MIN NO. 8, FA TABLET PO SCH (08:30)
[2018-01-14] MEDS: FLUTICASONE/VILANTEROL 1 EACH BLST.W.DEV IH SCH (08:31)
[2018-01-14] MEDS: CLONAZEPAM 0.5 MG TABLET PO PRN (11:40)
[2018-01-14 15:37] LABS: BASOPHILS % (AUTO) 0.7 % (0.0-2.0); EOSINOPHILS # (AUTO) 0.2 K/uL (0.0-0.7); EOSINOPHILS % (AUTO) 4.5 % (0.0-7.0); HEMATOCRIT 30.5 % (31.2-41.9); HEMOGLOBIN 10.2 g/dL (10.9-14.3); LYMPHOCYTES # (AUTO) 1.4 K/uL (20.0-40.0); LYMPHOCYTES % (AUTO) 33.2 % (20.5-51.5); MEAN CORPUSCULAR HGB CONC 34 g/dL (32.3-35.6); MEAN CORPUSCULAR VOLUME 95.4 fL (75.5-95.3); MONOCYTES # (AUTO) 0.3 K/uL (2.0-10.0); MONOCYTES % (AUTO) 7.2 % (0.0-11.0); NEUTROPHILS # (AUTO) 2.3 K/uL (1.8-8.9); NEUTROPHILS % (AUTO) 54.4 % (38.5-71.5); PLATELET COUNT (AUTO) 152 K/uL (179-408); RED BLOOD CELL COUNT(AUTO) 3.19 MIL/uL (3.63-4.92); WHITE BLOOD COUNT (AUTO) 4.1 K/uL (3.8-11.8)
[2018-01-14 15:51] LABS: ALANINE AMINOTRANSFERASE 20 U/L (14-59); ALKALINE PHOSPHATASE 50 U/L (50-136); ASPARTATE AMINOTRANSFERASE 17 U/L (15-37); BILIRUBIN,TOTAL 0.3 mg/dL (0.2-1.0); CARBON DIOXIDE 30 mmol/L (21-32); CHLORIDE 99 mmol/L (98-107); CREATININE 1.2 mg/dL (0.6-1.3); GLUCOSE 87 mg/dL (74-106); MAGNESIUM 2.2 mg/dL (1.8-2.4); PHOSPHOROUS 4.3 mg/dL (2.5-4.9); POTASSIUM 4.5 mmol/L (3.5-5.1); UREA NITROGEN, BLOOD 37 mg/dL (7-18)
[2018-01-14 15:59] VITALS: BP 122/64
[2018-01-14 16:15] LABS: THYROID STIMULATING HORMONE 2.579 mIU/mL (0.358-3.740)
[2018-01-14 21:11] VITALS: BP 101/54
[2018-01-14] MEDS: TEMAZEPAM 7.5 MG CAPSULE PO PRN (22:13)
[2018-01-15 07:30] VITALS: BP 116/59
[2018-01-15] MEDS: ASPIRIN 81 MG TAB.CHEW PO SCH (08:32)
[2018-01-15] MEDS: OXCARBAZEPINE 150 MG TABLET PO SCH ×3 (08:32→17:43)
[2018-01-15] MEDS: TOPIRAMATE 25 MG TABLET PO SCH ×3 (08:32→17:43)
[2018-01-15] MEDS: QUETIAPINE FUMARATE 100 MG TABLET PO SCH ×2 (08:32→17:43)
[2018-01-15] MEDS: ENALAPRIL 2.5 MG TABLET PO SCH (08:33)
[2018-01-15] MEDS: DOCUSATE SODIUM 100 MG CAPSULE PO SCH ×2 (08:33→17:43)
[2018-01-15] MEDS: MULTIVIT, IRON, MIN NO. 8, FA TABLET PO SCH (08:33)
[2018-01-15] MEDS: CHOLECALCIFEROL 1,000 UNIT TABLET PO SCH (08:33)
[2018-01-15] MEDS: AMIODARONE HCL 200 MG TABLET PO SCH (08:34)
[2018-01-15] MEDS: FLUTICASONE/VILANTEROL 1 EACH BLST.W.DEV IH SCH (08:43)
[2018-01-15 16:00] VITALS: BP 119/49
[2018-01-15 20:17] VITALS: BP 93/48
--- NOTE | 2018-01-16 06:18 | NUR ---
GPS: REMAIN CALM AND COOPERATIVE. NO ACUTE DISTRESS NOTED. SLEPT 7:30 HRS THROUGH THE NIGHT. COMFORT MEASURES PROVIDED. CONTINUE ON 1:1 SITTER @ BED SIDE FOR SAFETY.WILL CONTINUE TO MONITOR CLOSELY.
[2018-01-16 07:30] VITALS: BP 139/51
--- NOTE | 2018-01-16 08:12 | NUR ---
DC Note: Patient will be discharged to [facility] [[address] [place] [address]; ] via ambulance. ROSALINDA spoke with Adan from [facility] who confirmed they can accept patient today. Patient is alert and oriented x2 and is calm. ROSALINDA spoke with patient's daughter Marilyn [[phone]] who is aware and agreeable to discharge plans. Patient will follow up with Dr. Sam (Psychiatrist) and Dr. Thompson (Senior Scientist) at the facility.
[2018-01-16] MEDS: FLUTICASONE/VILANTEROL 1 EACH BLST.W.DEV IH SCH (08:35)
[2018-01-16] MEDS: QUETIAPINE FUMARATE 100 MG TABLET PO SCH (08:36)
[2018-01-16] MEDS: AMIODARONE HCL 200 MG TABLET PO SCH (08:36)
[2018-01-16] MEDS: OXCARBAZEPINE 150 MG TABLET PO SCH (08:36)
[2018-01-16 08:37] VITALS: BP 139/51
[2018-01-16] MEDS: TOPIRAMATE 25 MG TABLET PO SCH (08:37)
[2018-01-16] MEDS: ENALAPRIL 2.5 MG TABLET PO SCH (08:37)
[2018-01-16] MEDS: ASPIRIN 81 MG TAB.CHEW PO SCH (08:46)
[2018-01-16] MEDS: DOCUSATE SODIUM 100 MG CAPSULE PO SCH (08:49)
[2018-01-16] MEDS: MULTIVIT, IRON, MIN NO. 8, FA TABLET PO SCH (08:51)
[2018-01-16] MEDS: CHOLECALCIFEROL 1,000 UNIT TABLET PO SCH (09:00)
--- NOTE | 2018-01-16 11:00 | NUR ---
CALLED [facility], SPOKE TO SINTIA CHANDLER AND REPORT GIVEN REGARDING MEDICATIONS TO CONTINUE AT THE FACILILY,. ALSO INFORMED ABOUT PATIENT PRESENT BEHAVIOR. CALM.1215 PATIENT PICKED UP BY AMBULANCE AND DISCHARGED TO THE FACILITY STABLE CONDITION.
== END 2018-01-16 12:15 | DRG 885 ==
LOC: ER 12:03 → GPS 15:00
PROVIDERS: ADMIT Psychiatry & Neurology Psychiatry; ATTEND Nurse Practitioner Acute Care
DX: F31.64 Bipolar disorder, current episode mixed, severe, with psychotic features (principal); F02.81 Dementia in other diseases classified elsewhere, unspecified severity, with behavioral disturbance; N17.0 Acute kidney failure with tubular necrosis; N39.0 Urinary tract infection, site not specified; E87.1 Hypo-osmolality and hyponatremia; G30.9 Alzheimer's disease, unspecified; J44.9 Chronic obstructive pulmonary disease, unspecified; E78.5 Hyperlipidemia, unspecified; E86.1 Hypovolemia; I48.2 Chronic atrial fibrillation; I25.119 Atherosclerotic heart disease of native coronary artery with unspecified angina pectoris; F41.9 Anxiety disorder, unspecified; E11.40 Type 2 diabetes mellitus with diabetic neuropathy, unspecified; Z79.82 Long term (current) use of aspirin; Z79.899 Other long term (current) drug therapy; D69.6 Thrombocytopenia, unspecified; Z91.81 History of falling
CPT/HCPCS: 36415; 70450; 71045; 80307; 82746; 83735; 84100; 84443; 85025; 87086; 93005; 97112; 97116; A4663; G0480; G0480-TC; J1630; J2060; J2358

== ENCOUNTER 2019-05-12 21:47 | Inpatient (IN) | payer MEDICARE, MEDICAID ==
[~2019-05-12] VITALS: Ht 152.4 cm; Wt 68.9 kg
[2019-05-12 21:00] VITALS: BP 112/52
[~2019-05-12 21:47] MED LIST changes: -CARV3.12 PO; -CHOL100062 PO; +CHOL20004 PO; +MAG355OR18 PO; -MELA3TAB PO; +MULT-213 PO; +NA P133E RC; -OXCA150T5 PO
--- NOTE | 2019-05-12 21:54 | NUR ---
Patient BIB BLS transport from [facility] for MHU admission. Patient is already on a 5150 for GD.
[2019-05-12] MEDS ORDERED: QUETIAPINE FUMARATE 25 MG TABLET ONE (22:05)
[2019-05-12] MEDS ORDERED: FLUT1BLS IH (22:15)
[2019-05-12] MEDS ORDERED: QUETIAPINE FUMARATE 25 MG TABLET PO ONE (22:15)
[2019-05-12] MEDS ORDERED: ALBU2.5V38 IH (22:15)
[2019-05-12] MEDS ORDERED: PANT40TA4 PO (22:15)
[2019-05-12] MEDS ORDERED: QUET50TA PO (22:15)
[2019-05-12] MEDS ORDERED: CRAN3875 PO (22:15)
[2019-05-12] MEDS ORDERED: QUET25TA PO (22:15)
[2019-05-12] MEDS ORDERED: LORA-258 PO (22:15)
[2019-05-12] MEDS ORDERED: TEMA7.5C PO (22:15)
[2019-05-12 22:18] LABS: *BILIRUBIN,URIN NEGATIVE (NEGATIVE); *BLOOD, URINE 2+ (NEGATIVE); *CLARITY,URINE SLIGHTLY CLOUDY (CLEAR); *COLOR,URINE LIGHT YELLOW (YELLOW); *KETONES,URINE NEGATIVE (NEGATIVE); *UROBILINOGEN,URINE 0.2 E.U./dl (NORMAL); LEUKOCYTE ESTERASE ,URINE 1+ (NEGATIVE); NITRITE, URINE NEGATIVE (NEGATIVE); UGLUCOSE NEGATIVE (NEGATIVE)
[2019-05-12 22:22] LABS: BASOPHILS % (AUTO) 0.8 % (0.0-2.0); EOSINOPHILS # (AUTO) 0.1 K/uL (0.0-0.7); EOSINOPHILS % (AUTO) 2.7 % (0.0-7.0); HEMATOCRIT 34.5 % (31.2-41.9); HEMOGLOBIN 11.3 g/dL (10.9-14.3); LYMPHOCYTES # (AUTO) 1.2 K/uL (20.0-40.0); LYMPHOCYTES % (AUTO) 22.7 % (20.5-51.5); MEAN CORPUSCULAR HEMOGLOBIN 31.5 uug (24.7-32.8); MEAN CORPUSCULAR HGB CONC 33 g/dL (32.3-35.6); MEAN CORPUSCULAR VOLUME 95.9 fL (75.5-95.3); MONOCYTES # (AUTO) 0.3 K/uL (2.0-10.0); MONOCYTES % (AUTO) 5.3 % (0.0-11.0); NEUTROPHILS # (AUTO) 3.6 K/uL (1.8-8.9); NEUTROPHILS % (AUTO) 68.5 % (38.5-71.5); PLATELET COUNT (AUTO) 177 K/uL (179-408); RED BLOOD CELL COUNT(AUTO) 3.59 MIL/uL (3.63-4.92); WHITE BLOOD COUNT (AUTO) 5.3 K/uL (3.8-11.8)
[2019-05-12 22:25] LABS: BACTERIA,URINE FEW /HPF (NONE SEEN); SQUAMOUS EPITHELIAL CELL,UR MODERATE /HPF (NONE SEEN); WBC,URINE 20-50 /HPF (0-3)
[2019-05-12 22:27] LABS: *AMPHETAMINE, URINE NEGATIVE (NEGATIVE); *BARBITURATE, URINE NEGATIVE (NEGATIVE); *CANNABINOID, URINE NEGATIVE (NEGATIVE); *COCCAINE, URINE NEGATIVE (NEGATIVE); *OPIATE, URINE NEGATIVE (NEGATIVE); *PHENCYCLIDINE SCREEN,URINE NEGATIVE (NEGATIVE)
--- NOTE | 2019-05-12 22:30 | NUR ---
Per star Kleinboiler house mechanic, no security standby is approved for this patient. Patient is an elopement risk and has made multiple statements with intent to elope from this facility. Security states they were told by boiler house mechanic that the security standby was denied. Will provide patient with direct observation as patient load allows.
--- NOTE | 2019-05-12 22:33 | NUR ---
Patient was left her room 3 times since arrival. She states " I am leaving, I have placed to be". Patient was redirected back to room althought she was not very cooperative.
[2019-05-12 22:36] LABS: ALANINE AMINOTRANSFERASE 10 U/L (14-59); ALKALINE PHOSPHATASE 59 U/L (50-136); ASPARTATE AMINOTRANSFERASE 8 U/L (15-37); BILIRUBIN,DIRECT 0.1 mg/dL (0.0-0.2); BILIRUBIN,TOTAL 0.3 mg/dL (0.2-1.0); CARBON DIOXIDE 29 mmol/L (21-32); CHLORIDE 102 mmol/L (98-107); GLUCOSE 150 mg/dL (74-106); POTASSIUM 4.2 mmol/L (3.5-5.1); TOTAL PROTEIN, SERUM 6.5 g/dL (6.4-8.2); UREA NITROGEN, BLOOD 20 mg/dL (7-18)
--- NOTE | 2019-05-12 22:37 | NUR ---
Patient currently refuses to stay in her room, continuously attempting to leave the facility.
[2019-05-12 22:40] LABS: ACETAMINOPHEN < 2.0 ug/mL (10-30)
--- NOTE | 2019-05-12 23:05 | NUR ---
Admission Notes: 84 year old female brought to MHU from ER via wheelchair. accompanied by ER staff. Patient admitted on a 5150 hold for GD. Under the care of Dr. Sam and Dr. Thompson. Per Hold Patient has been refusing her inhaler, verbally aggressive to staff and residents. Patient unable to stay calm, observed pacing in the hallway. Pt screaming down the hallway and staff report she cannot be re-directed. Upon face to face evaluation, patient was cooperative at first, signed admission paper work. Denies SI/HI/AVH. Patient suddenly became irritated when she found out she can't go home tonight. Patient became uncooperative, anxious, focused on going home, pacing, hyperverbal, poor insight, poor judgement, and poor thought process. Redirected patient to her room. Explained policy and rules. Partial skin assessment was done, patient refused to have a full skin assessment done. "I don't have any scars or wounds. Leave me alone." Managed to check patients back, no pressure sore. Patients lips has some purplish colors due to patient biting lips. No sign or symptom of resp. distress, breathing even, unlabored. no indication of pain or discomfort. Patient has no belongings or valuables. Advisement and patient rights handbook given and explained to the patient, will need reinforcement. Will continue to monitor patient for safety.
[2019-05-12 23:08] LABS: ETHANOL < 3 MG/DL (0-0)
[2019-05-12] MEDS ORDERED: MAG HYDROX/AL HYDROX/SIMETH 30 ML LIQUID UDC PO PRN (23:15)
[2019-05-12] MEDS ORDERED: TEMAZEPAM 7.5 MG CAPSULE PO PRN (23:15)
[2019-05-12] MEDS ORDERED: MAGNESIUM HYDROXIDE 30 ML LIQUID UDC PO PRN (23:15)
[2019-05-13 07:30] VITALS: BP 135/45
[2019-05-13] MEDS: LORAZEPAM 0.5 MG TABLET PO PRN ×3 (08:59→20:44)
[2019-05-13] MEDS ORDERED: ACETAMINOPHEN 325 MG TABLET PO PRN (09:15)
[2019-05-13] MEDS ORDERED: ALBUTEROL SULFATE 2.5 MG/3 ML NEBU IH SCH ×2 (09:15→10:02)
[2019-05-13] MEDS ORDERED: MAG HYDROX/AL HYDROX/SIMETH 30 ML LIQUID UDC PO PRN (09:15)
[2019-05-13] MEDS ORDERED: MAGNESIUM HYDROXIDE 30 ML LIQUID UDC PO PRN (09:15)
[2019-05-13] MEDS ORDERED: FLEET ENEMA 133 ML BOTTLE RC PRN (09:15)
[2019-05-13] MEDS: CHOLECALCIFEROL 1,000 UNIT TABLET PO SCH (10:09)
[2019-05-13] MEDS: AMIODARONE HCL 200 MG TABLET PO SCH (11:00)
[2019-05-13] MEDS: ALBUTEROL SULFATE 2.5 MG/3 ML NEBU IH SCH ×2 (13:15→13:30)
--- NOTE | 2019-05-13 13:29 | NUR ---
Initial Discharge Plan Patient currently resides at [facility] [[address] [place] [address]; ]. Service Engineer spoke with Jigar (Projection Engineer) at the facility who confirmed patient will return after discharge from the hospital. Service Engineer spoke with Marilyn Barnett, patient daughter and LPS Conservator ([phone]) who is aware of patient's current situation and would like her to return to [facility] when she is stable. SW will continue to work with patient, family, and MD to ensure a safe and proper discharge plan.
--- NOTE | 2019-05-13 13:57 | NUR ---
GPS: patient confused, disoriented, anxious, been asking to go home, educated about her hold patient , manic and unable to be redirect
--- NOTE | 2019-05-13 14:09 | NUR ---
seen and examine by Dr. Polanco, patient still confused, will continue monitor
[2019-05-13] MEDS: QUETIAPINE FUMARATE 25 MG TABLET PO SCH ×2 (14:28→16:03)
[2019-05-13] MEDS: DOCUSATE SODIUM 100 MG CAPSULE PO SCH (16:03)
[2019-05-13 16:22] VITALS: BP 158/65
[2019-05-13] MEDS ORDERED: Medication Not On Formulary EA (Cran/Vitc/Mannose/Inulin/Brom (Uti-Stat Liquid) 30 ML) PO SCH (17:00)
--- NOTE | 2019-05-13 17:23 | NUR ---
patient remains intrusive asking for telephone and been calling her son almost every 5 minutes
[2019-05-13] MEDS: ACETAMINOPHEN 325 MG TABLET PO PRN (18:53)
--- NOTE | 2019-05-13 20:00 | NUR ---
Patient received into care, standing at nurse's station, alert/oriented x2. Patient has no complaints of pain or discomfort at this time, but is requesting to use the telephone. All safety and fall precaution measures are in place. Will continue to monitor throughout shift.
[2019-05-13 21:00] VITALS: BP 157/87
[2019-05-14] MEDS: ACETAMINOPHEN 325 MG TABLET PO PRN ×2 (06:09→19:52)
[2019-05-14] MEDS: PANTOPRAZOLE SODIUM 40 MG TABLET.DR PO SCH (06:09)
--- NOTE | 2019-05-14 06:46 | NUR ---
Patient slept comfortably throughout night, receiving a total of 7.30 sleep hours. Patient was initially agitated at the beginning of the shift and not responding to redirection. Nurse provided patient prescribed prn Ativan, which was effective in calming patient. Patient was compliant with medicine and care regimen during this shift. Complaints of headache were addressed with prescribed Tylenol. All safety and fall precaution measures remain in place.
[2019-05-14 07:30] VITALS: BP 117/52
[2019-05-14] MEDS: QUETIAPINE FUMARATE 25 MG TABLET PO SCH ×2 (08:25→16:38)
[2019-05-14] MEDS: FLUTICASONE/VILANTEROL 1 EACH BLST.W.DEV IH SCH (08:25)
[2019-05-14] MEDS: DOCUSATE SODIUM 100 MG CAPSULE PO SCH ×2 (08:30→16:38)
[2019-05-14] MEDS: AMIODARONE HCL 200 MG TABLET PO SCH (08:30)
[2019-05-14] MEDS: ASPIRIN 81 MG TAB.CHEW PO SCH (08:30)
[2019-05-14] MEDS: CHOLECALCIFEROL 1,000 UNIT TABLET PO SCH (08:30)
[2019-05-14] MEDS ORDERED: AMIODARONE HCL 200 MG PO SCH (09:00)
[2019-05-14] MEDS ORDERED: Medication Not On Formulary EA (Cholecalciferol (Vitamin D3) (Vitamin D CAPSULE) 2,000 U PO SCH (09:00)
[2019-05-14] MEDS: LORAZEPAM 0.5 MG TABLET PO PRN ×2 (10:52→19:42)
--- NOTE | 2019-05-14 13:32 | NUR ---
PT CONTINUES TO BE QUITE FORGETFUL, PERSEVERATING ON CALLING AND SPEAKING TO CHILDREN. INSTRUSIVE AT THIS TIME, FREQUENTLY GOING INTO NURSES STATION, ATTEMPTING TO USE TELEPHONE. REQUIRES FREQUENT REDIRECTION. EXCESSIVELY PRESENT AT NURSES STATION. NO COMBATIVE OR AGGRESSIVE BEHAVIOR NOTED. IN NO ACUTE DISTRESS.
[2019-05-14 16:52] VITALS: BP 157/86
[2019-05-14 18:03] LABS: BASOPHILS % (AUTO) 0.7 % (0.0-2.0); EOSINOPHILS # (AUTO) 0.1 K/uL (0.0-0.7); EOSINOPHILS % (AUTO) 1.6 % (0.0-7.0); HEMATOCRIT 35.5 % (31.2-41.9); HEMOGLOBIN 11.6 g/dL (10.9-14.3); LYMPHOCYTES # (AUTO) 1.2 K/uL (20.0-40.0); LYMPHOCYTES % (AUTO) 22.9 % (20.5-51.5); MEAN CORPUSCULAR HEMOGLOBIN 30.7 uug (24.7-32.8); MEAN CORPUSCULAR HGB CONC 33 g/dL (32.3-35.6); MEAN CORPUSCULAR VOLUME 93.8 fL (75.5-95.3); MONOCYTES # (AUTO) 1.2 K/uL (2.0-10.0); MONOCYTES % (AUTO) 23.3 % (0.0-11.0); NEUTROPHILS # (AUTO) 2.6 K/uL (1.8-8.9); NEUTROPHILS % (AUTO) 51.5 % (38.5-71.5); PLATELET COUNT (AUTO) 208 K/uL (179-408); RED BLOOD CELL COUNT(AUTO) 3.79 MIL/uL (3.63-4.92); WHITE BLOOD COUNT (AUTO) 5.1 K/uL (3.8-11.8)
[2019-05-14 18:16] LABS: BILIRUBIN,TOTAL 0.5 mg/dL (0.2-1.0); POTASSIUM 4.4 mmol/L (3.5-5.1); TOTAL PROTEIN, SERUM 7.1 g/dL (6.4-8.2)
[2019-05-14] MEDS: GABAPENTIN 100 MG CAPSULE PO SCH (18:20)
[2019-05-14 19:08] LABS: BAND % (MANUAL) 3 % (0-10); EOSINOPHILS % (MANUAL) 2 % (0-8); LYMPHOCYTES % (MANUAL) 21 % (20-40); MONOCYTES % (MANUAL) 10 % (2-10)
[2019-05-14 19:09] LABS: NEUTROPHILS % (MANUAL) 62 % (42-75); REACTIVE LYMPHOCYTES 2 % (0-0)
[2019-05-14] MEDS: ALBUTEROL SULFATE 2.5 MG/3 ML NEBU IH SCH (19:30)
[2019-05-14 20:13] VITALS: BP 170/90
[2019-05-14] MEDS ORDERED: hydrALAZINE HCL 10 MG TABLET PO PRN (20:45)
[2019-05-14] MEDS: SULFAMETH/TRIMETH 800/160 MG TABLET PO SCH (21:02)
--- NOTE | 2019-05-14 21:15 | NUR ---
Received patient walking up and down the [place] asking everyone " can you get me a taxi, I am going home". Patients B/p 170/90. A UTI also noted. Dr Rodriguez notified and orders received. Medications given per order. Continuing to monitor VS. No acute distress noted.
[2019-05-15] MEDS: ALBUTEROL SULFATE 2.5 MG/3 ML NEBU IH SCH ×4 (00:39→19:06)
[2019-05-15] MEDS: PANTOPRAZOLE SODIUM 40 MG TABLET.DR PO SCH (06:07)
--- NOTE | 2019-05-15 06:26 | NUR ---
Patient slept 7 hours and is still asleep. Assisted patient to restroom during the night. No acute distress noted. Patient remains very forgetful, and needs constant reorientation.. Patient has been compliant with medications this shift. Continuing to monitor and treat as needed. Recheck of the B/P is 145/59 after the PRN medication given.
[2019-05-15 07:30] VITALS: BP 131/69
[2019-05-15] MEDS: SULFAMETH/TRIMETH 800/160 MG TABLET PO SCH ×2 (09:00→20:00)
[2019-05-15] MEDS: DOCUSATE SODIUM 100 MG CAPSULE PO SCH ×2 (09:00→17:56)
[2019-05-15] MEDS: GABAPENTIN 100 MG CAPSULE PO SCH ×2 (09:00→17:55)
[2019-05-15] MEDS: FLUTICASONE/VILANTEROL 1 EACH BLST.W.DEV IH SCH (09:00)
[2019-05-15] MEDS: CHOLECALCIFEROL 1,000 UNIT TABLET PO SCH (09:00)
[2019-05-15] MEDS: QUETIAPINE FUMARATE 25 MG TABLET PO SCH ×2 (09:00→17:55)
[2019-05-15] MEDS: ASPIRIN 81 MG TAB.CHEW PO SCH (09:00)
[2019-05-15] MEDS: AMIODARONE HCL 200 MG TABLET PO SCH (09:00)
[2019-05-15 16:00] VITALS: BP 145/72
[2019-05-15] MEDS: LORAZEPAM 0.5 MG TABLET PO PRN (20:00)
[2019-05-15 20:26] VITALS: BP 122/65
[2019-05-16] MEDS: ALBUTEROL SULFATE 2.5 MG/3 ML NEBU IH SCH ×4 (01:15→19:30)
--- NOTE | 2019-05-16 05:57 | NUR ---
Patient slept 4.45 hours during the night. Up a few times to use the restroom. Patient remains forgetful and needs constant reassurance and reorientation. Patient in bed at his time but is awake. No distress noted. Patient refused morning dose of Protonix.
[2019-05-16] MEDS: PANTOPRAZOLE SODIUM 40 MG TABLET.DR PO SCH (06:02)
[2019-05-16 08:29] VITALS: BP 144/54
[2019-05-16] MEDS: QUETIAPINE FUMARATE 25 MG TABLET PO SCH ×2 (08:31→17:15)
[2019-05-16] MEDS: GABAPENTIN 100 MG CAPSULE PO SCH ×2 (08:32→17:15)
[2019-05-16] MEDS: DOCUSATE SODIUM 100 MG CAPSULE PO SCH ×2 (08:32→17:15)
[2019-05-16] MEDS: SULFAMETH/TRIMETH 800/160 MG TABLET PO SCH ×3 (08:32→20:40)
[2019-05-16] MEDS: CHOLECALCIFEROL 1,000 UNIT TABLET PO SCH (08:32)
[2019-05-16] MEDS: ASPIRIN 81 MG TAB.CHEW PO SCH (08:32)
[2019-05-16] MEDS: FLUTICASONE/VILANTEROL 1 EACH BLST.W.DEV IH SCH (08:39)
[2019-05-16] MEDS: AMIODARONE HCL 200 MG TABLET PO SCH (08:39)
[2019-05-16] MEDS: ACETAMINOPHEN 325 MG TABLET PO PRN (15:16)
[2019-05-16 18:17] VITALS: BP 155/72
[2019-05-16 20:11] VITALS: BP 141/59
[2019-05-17] MEDS: ALBUTEROL SULFATE 2.5 MG/3 ML NEBU IH SCH ×5 (01:06→19:43)
[2019-05-17] MEDS: ACETAMINOPHEN 325 MG TABLET PO PRN (02:52)
[2019-05-17] MEDS: LORAZEPAM 0.5 MG TABLET PO PRN ×3 (02:58→15:17)
--- NOTE | 2019-05-17 03:04 | NUR ---
GPS: Anxious and awake at this time. Frequently asking same questions over and over again. Needs constant reminders and re-direction. Ativan 0.5mg given PO for increased anxiety. Kept near nurses station for close observation. Fall precautions observed.
[2019-05-17] MEDS: PANTOPRAZOLE SODIUM 40 MG TABLET.DR PO SCH (06:21)
--- NOTE | 2019-05-17 06:56 | NUR ---
GPS: Refused Protonix 40mg PO despite explanation of risks vs.benefits x3. Re-directed prn. Safety emphasized. Will monitor closely.
[2019-05-17 07:30] VITALS: BP 122/49
[2019-05-17] MEDS: CHOLECALCIFEROL 1,000 UNIT TABLET PO SCH (08:23)
[2019-05-17] MEDS: QUETIAPINE FUMARATE 25 MG TABLET PO SCH ×2 (08:23→17:16)
[2019-05-17] MEDS: FLUTICASONE/VILANTEROL 1 EACH BLST.W.DEV IH SCH (08:24)
[2019-05-17] MEDS: GABAPENTIN 100 MG CAPSULE PO SCH ×2 (08:24→17:15)
[2019-05-17] MEDS: DOCUSATE SODIUM 100 MG CAPSULE PO SCH ×2 (08:24→17:15)
[2019-05-17] MEDS: SULFAMETH/TRIMETH 800/160 MG TABLET PO SCH ×2 (08:24→20:03)
[2019-05-17] MEDS: ASPIRIN 81 MG TAB.CHEW PO SCH (08:24)
[2019-05-17] MEDS: AMIODARONE HCL 200 MG TABLET PO SCH (08:26)
[2019-05-17 15:36] VITALS: BP 121/47
[2019-05-17 20:00] VITALS: BP 140/58
[2019-05-18] MEDS: ALBUTEROL SULFATE 2.5 MG/3 ML NEBU IH SCH ×4 (01:44→19:30)
[2019-05-18] MEDS: PANTOPRAZOLE SODIUM 40 MG TABLET.DR PO SCH (06:22)
[2019-05-18 07:30] VITALS: BP 136/77
[2019-05-18] MEDS: ASPIRIN 81 MG TAB.CHEW PO SCH (08:07)
[2019-05-18] MEDS: AMIODARONE HCL 200 MG TABLET PO SCH (08:07)
[2019-05-18] MEDS: SULFAMETH/TRIMETH 800/160 MG TABLET PO SCH ×2 (08:07→20:09)
[2019-05-18] MEDS: GABAPENTIN 100 MG CAPSULE PO SCH ×3 (08:07→16:33)
[2019-05-18] MEDS: QUETIAPINE FUMARATE 25 MG TABLET PO SCH ×2 (08:07→16:33)
[2019-05-18] MEDS: FLUTICASONE/VILANTEROL 1 EACH BLST.W.DEV IH SCH (08:08)
[2019-05-18] MEDS: CHOLECALCIFEROL 1,000 UNIT TABLET PO SCH (08:08)
[2019-05-18] MEDS: DOCUSATE SODIUM 100 MG CAPSULE PO SCH ×2 (08:08→16:34)
[2019-05-18] MEDS: LORAZEPAM 0.5 MG TABLET PO PRN (08:50)
[2019-05-18 15:28] VITALS: BP 138/79
[2019-05-18 20:26] VITALS: BP 147/78
[2019-05-19] MEDS: ALBUTEROL SULFATE 2.5 MG/3 ML NEBU IH SCH ×5 (01:30→19:18)
[2019-05-19] MEDS: PANTOPRAZOLE SODIUM 40 MG TABLET.DR PO SCH (06:12)
[2019-05-19 07:48] VITALS: BP 138/60
[2019-05-19] MEDS: QUETIAPINE FUMARATE 25 MG TABLET PO SCH ×2 (08:07→17:02)
[2019-05-19] MEDS: SULFAMETH/TRIMETH 800/160 MG TABLET PO SCH (08:07)
[2019-05-19] MEDS: ASPIRIN 81 MG TAB.CHEW PO SCH (08:08)
[2019-05-19] MEDS: DOCUSATE SODIUM 100 MG CAPSULE PO SCH ×2 (08:08→17:02)
[2019-05-19] MEDS: AMIODARONE HCL 200 MG TABLET PO SCH (08:08)
[2019-05-19] MEDS: CHOLECALCIFEROL 1,000 UNIT TABLET PO SCH (08:08)
[2019-05-19] MEDS: GABAPENTIN 100 MG CAPSULE PO SCH ×3 (08:08→17:02)
[2019-05-19] MEDS: FLUTICASONE/VILANTEROL 1 EACH BLST.W.DEV IH SCH (09:00)
[2019-05-19] MEDS: ACETAMINOPHEN 325 MG TABLET PO PRN (10:54)
[2019-05-19 16:22] VITALS: BP 132/60
[2019-05-19] MEDS: LORAZEPAM 0.5 MG TABLET PO PRN (16:42)
[2019-05-19 20:16] VITALS: BP 124/62
--- NOTE | 2019-05-19 22:00 | NUR ---
received to care, appearing anxious, and needy. intrusive with peers and staff. needs frequent redirection. compliant with fluids, snacks, medications, and staff direction. she appeared much calmer, after taking her medications. as of 0, she appears to be asleep. no distress noted. will continue to monitor closely.
[2019-05-20] MEDS: ALBUTEROL SULFATE 2.5 MG/3 ML NEBU IH SCH ×4 (00:55→19:30)
[2019-05-20] MEDS: ACETAMINOPHEN 325 MG TABLET PO PRN (03:34)
--- NOTE | 2019-05-20 06:00 | NUR ---
slept 7.75 hours.
[2019-05-20] MEDS: PANTOPRAZOLE SODIUM 40 MG TABLET.DR PO SCH (07:11)
[2019-05-20 07:30] VITALS: BP 99/59
--- NOTE | 2019-05-20 08:07 | NUR ---
FIREARMS REPORT: Developmental Training Counselor completed and submitted a [employer] firearms report for 5250 grave disability certification. A copy of report has been placed in patient chart.
[2019-05-20] MEDS: ASPIRIN 81 MG TAB.CHEW PO SCH (08:20)
[2019-05-20] MEDS: DOCUSATE SODIUM 100 MG CAPSULE PO SCH ×2 (08:20→17:00)
[2019-05-20] MEDS: GABAPENTIN 100 MG CAPSULE PO SCH ×3 (08:20→17:00)
[2019-05-20] MEDS: CHOLECALCIFEROL 1,000 UNIT TABLET PO SCH (08:20)
[2019-05-20] MEDS: QUETIAPINE FUMARATE 25 MG TABLET PO SCH ×2 (08:20→17:00)
[2019-05-20] MEDS: FLUTICASONE/VILANTEROL 1 EACH BLST.W.DEV IH SCH (09:00)
[2019-05-20] MEDS: AMIODARONE HCL 200 MG TABLET PO SCH (09:00)
[2019-05-20] MEDS: LORAZEPAM 0.5 MG TABLET PO PRN ×2 (10:24→15:34)
[2019-05-20 16:00] VITALS: BP 123/69
[2019-05-20] MEDS ORDERED: OLANZAPINE 10 MG VIAL IM ONE (17:30)
[2019-05-20] MEDS ORDERED: LORAZEPAM 2 MG/1 ML VIAL IM ONE (17:30)
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
[2019-05-20 20:51] VITALS: BP 120/65
--- NOTE | 2019-05-20 22:00 | NUR ---
received to care, calm, and pleasant upon approach. observed to be wandering at times, but is easy to redirect. bedtime snack given. as of 2200, she appears to be asleep. no distress noted. will continue to monitor closely.
[2019-05-21] MEDS: ALBUTEROL SULFATE 2.5 MG/3 ML NEBU IH SCH ×3 (00:58→13:01)
[2019-05-21] MEDS: PANTOPRAZOLE SODIUM 40 MG TABLET.DR PO SCH (05:58)
[2019-05-21 07:30] VITALS: BP 99/50
--- NOTE | 2019-05-21 07:52 | NUR ---
Discharge Note Patient will be discharged back to [facility]-term [facility] [[address] [place] [address]; [phone]] via ambulance. Please arrange ambulance transportation for patient to picked up at 12:00PM. Spoke with Jigar [licensing representative] at the facility who states they are ready to accept the patient today. Spoke with patients daughter, Marilyn Barnett [[phone]] who is aware and agreeable with discharge plans. Patient will follow-up at the facility with Dr. Thompson (Pumper Gauger Apprentice) and Dr. Sam (Psychiatrist). Patient is alert and oriented times 3-4, denies suicidal or homicidal ideation, and is aware and agreeable with discharge plans. Patient presents with calm mood and congruent affect during the time of discharge. Patient is unable to plan for self-care at this time, however, is willing to accept care provided at the facility.
[2019-05-21] MEDS: FLUTICASONE/VILANTEROL 1 EACH BLST.W.DEV IH SCH (10:03)
[2019-05-21] MEDS: DOCUSATE SODIUM 100 MG CAPSULE PO SCH (10:03)
[2019-05-21] MEDS: CHOLECALCIFEROL 1,000 UNIT TABLET PO SCH (10:03)
[2019-05-21] MEDS: QUETIAPINE FUMARATE 25 MG TABLET PO SCH (10:03)
[2019-05-21] MEDS: ASPIRIN 81 MG TAB.CHEW PO SCH (10:03)
[2019-05-21] MEDS: GABAPENTIN 100 MG CAPSULE PO SCH (10:03)
[2019-05-21] MEDS: AMIODARONE HCL 200 MG TABLET PO SCH (10:04)
--- NOTE | 2019-05-21 12:10 | NUR ---
Patient is alert, calm, not in any form of distress. Patient denies any suicidal or homicidal ideation. No complain of any pain or discomfort. All belongings well accounted for. Report called/given to nurse Bowser from [facility] regarding patient discharging to their facility and the continuation of medications as ordered. 1200 Patient picked up by [facility] transportation. Patient discharged to [facility].
== END 2019-05-21 12:10 | DRG 885 ==
LOC: ER 21:49 → GPS 22:43
PROVIDERS: ADMIT Psychiatry & Neurology Psychiatry; ATTEND Internal Medicine
DX: F31.64 Bipolar disorder, current episode mixed, severe, with psychotic features (principal); I11.0 Hypertensive heart disease with heart failure; N39.0 Urinary tract infection, site not specified; I50.32 Chronic diastolic (congestive) heart failure; D68.59 Other primary thrombophilia; Z96.21 Cochlear implant status; E11.42 Type 2 diabetes mellitus with diabetic polyneuropathy; J06.9 Acute upper respiratory infection, unspecified; J44.9 Chronic obstructive pulmonary disease, unspecified; Z79.51 Long term (current) use of inhaled steroids; G30.9 Alzheimer's disease, unspecified; F02.80 Dementia in other diseases classified elsewhere, unspecified severity, without behavioral disturbance, psychotic disturbance, mood disturbance, and anxiety; I25.119 Atherosclerotic heart disease of native coronary artery with unspecified angina pectoris; I48.91 Unspecified atrial fibrillation; Z79.899 Other long term (current) drug therapy; Z91.14 Patient's other noncompliance with medication regimen; E78.5 Hyperlipidemia, unspecified; Z79.82 Long term (current) use of aspirin
CPT/HCPCS: 36415; 70030-TC; 71045; 80307; 85025; 87086; 93005; 94664; A4663; G0480; G0480-TC; J2060; J2358

== ENCOUNTER 2021-09-11 20:46 | Inpatient (IN) | payer MEDICARE, OTHER ==
[~2021-09-11] VITALS: Ht 162.6 cm; Wt 62.6 kg
[~2021-09-11 20:46] MED LIST changes: +ALBU2.5V38 IH; +CRAN3875 PO; -DONE5TAB7 PO; -ENAL2.5T PO; -MULT-213 PO; +PANT40TA49 PO; -TOPI50TA PO
--- NOTE | 2021-09-11 20:53 | NUR ---
Patient BIB [facility] unit 275 from [facility] for c/o genaralized weakness and fatigue since last night. Per report staff from [facility] found patient sitting on floor at 1700 today.
--- NOTE | 2021-09-11 21:00 | NUR ---
Dr. Masterson on bedside for MSE.
[2021-09-11 22:24] LABS: HEMATOCRIT 32.1 % (31.2-41.9); MEAN CORPUSCULAR HEMOGLOBIN 32.2 uug (24.7-32.8); MEAN CORPUSCULAR VOLUME 95.9 fL (75.5-95.3); PLATELET COUNT (AUTO) 171 K/uL (179-408)
[2021-09-11 22:28] LABS: CARBON DIOXIDE 33 mmol/L (21-32); CHLORIDE 100 mmol/L (98-107); CREATININE 1.4 mg/dL (0.6-1.3); ETHANOL < 3 MG/DL (0-0); GLUCOSE 128 mg/dL (74-106); POTASSIUM 4.3 mmol/L (3.5-5.1); UREA NITROGEN, BLOOD 32 mg/dL (7-18)
[2021-09-11 22:37] LABS: ALANINE AMINOTRANSFERASE 15 U/L (14-59); ALKALINE PHOSPHATASE 55 U/L (50-136); ASPARTATE AMINOTRANSFERASE 15 U/L (15-37); BILIRUBIN,DIRECT 0.1 mg/dL (0.0-0.2); BILIRUBIN,TOTAL 0.5 mg/dL (0.2-1.0); TOTAL PROTEIN, SERUM 6.9 g/dL (6.4-8.2)
[2021-09-12] LABS: *BILIRUBIN,URIN NEGATIVE (NEGATIVE); *BLOOD, URINE 2+ (NEGATIVE); *CLARITY,URINE CLEAR (CLEAR); *COLOR,URINE YELLOW (YELLOW); *KETONES,URINE NEGATIVE (NEGATIVE); *UROBILINOGEN,URINE 0.2 E.U./dl (NORMAL); LEUKOCYTE ESTERASE ,URINE 1+ (NEGATIVE); NITRITE, URINE NEGATIVE (NEGATIVE); PH,URINE 5.5 (5.0-8.0); UGLUCOSE NEGATIVE (NEGATIVE)
[2021-09-12 00:12] LABS: *AMPHETAMINE, URINE NEGATIVE (NEGATIVE); *CANNABINOID, URINE NEGATIVE (NEGATIVE); *COCCAINE, URINE NEGATIVE (NEGATIVE); *OPIATE, URINE NEGATIVE (NEGATIVE); *PHENCYCLIDINE SCREEN,URINE NEGATIVE (NEGATIVE)
[2021-09-12] MEDS ORDERED: CEFTRIAXONE 1 G in IV DEXTROSE 5% 50 ML IV ONE (00:30)
[2021-09-12] MEDS ORDERED: IV NORMAL SALINE 500 ML IV ONE (00:30)
[2021-09-12] MEDS ORDERED: CEFTRIAXONE /D5W 50ML IVPB **ER PYXIS IV ONE (00:41)
[2021-09-12] MEDS ORDERED: AZITHROMYCIN 250 MG TABLET PO ONE (00:45)
[2021-09-12] MEDS ORDERED: AZITHROMYCIN IV 500 MG in IV DEXTROSE 5% 250 ML IV ONE (00:45)
[2021-09-12] MEDS ORDERED: AZITHROMYCIN 500MG/ D5W 250ML IVPB **ER PYXIS ONLY IV ONE (00:51)
[2021-09-12 01:00] LABS: BACTERIA,URINE MODERATE /HPF (NONE SEEN); SQUAMOUS EPITHELIAL CELL,UR FEW /HPF (NONE SEEN)
--- NOTE | 2021-09-12 01:30 | NUR ---
Noted IV tubings on the floor. Patient pulled out IV. Tried to put another IV but patient is resisting, scratching and hitting staff.
[2021-09-12] MEDS ORDERED: ZIPRASIDONE MESYLATE 20 MG VIAL IM ONE ×2 (01:45→01:46)
--- NOTE | 2021-09-12 02:46 | NUR ---
[facility] panel call placed, spoke to Adriane, she stated she will get a hold of Dr. Veras for admitting.
--- NOTE | 2021-09-12 02:55 | NUR ---
Dr. Masterson on panel call with Dr. Veras. Patient accepted for admission to Telemetry unit. Dx Gen. weakness, UTI and renal insufficiency.
[2021-09-12] MEDS ORDERED: LORAZEPAM 2 MG/1 ML VIAL ONE (03:24)
[2021-09-12] MEDS ORDERED: REMEDY ESSENTIAL ZINC PASTE 113 GM TP PRN (04:00)
[2021-09-12] MEDS ORDERED: ONDANSETRON 4 MG/2 ML VIAL IV PRN (04:00)
[2021-09-12] MEDS ORDERED: MAGNESIUM HYDROXIDE 30 ML LIQUID UDC PO PRN ×2 (04:00→13:30)
[2021-09-12] MEDS ORDERED: ACETAMINOPHEN 325 MG TABLET PO PRN (04:00)
[2021-09-12] MEDS ORDERED: LORAZEPAM 2 MG/1 ML VIAL IV ONE (04:15)
--- NOTE | 2021-09-12 04:40 | NUR ---
Pt. admitted to telemetry unit, Room 317, under care of Dr. Veras. Belongs List completed.
--- NOTE | 2021-09-12 05:44 | NUR ---
Received patient via gurney admitted to room 317, medical-surgical unit, under care of Rito MEDICAL LANGUAGE SPECIALIST with admitting diagnosis of UTI and secondary diagnosis of encephalopathy. Upon initial assessment, patient is noted to be awake, alert and oriented to self only. Frequently tries to get out of bed. Oriented patient to time, place, room, bed and call light button. On room air, shows no signs of SOB. IV access on L wrist, gauge 22, patent and intact no fluids running. Pt is ambulatory and has BRP. DNR status. No skin issues noted. Slight edema of both lower extremities noted. Safety precautions initiated. Will endorse to day shift.
--- NOTE | 2021-09-12 05:55 | NUR ---
MRSA specimen collected. Will sent to lab.
--- NOTE | 2021-09-12 06:58 | NUR ---
Patient was attempting to get out of bed. Placed in Teresa chair and wrapped with blanket for safety.
--- NOTE | 2021-09-12 08:00 | NUR ---
RECEIVED PATIENT UP ON CRYSTAL-CHAIR AWAKE ALERT BUT CONFUSED X4 NO SIGNS OF DISTRESS OR SOB. CONTINUE WITH PLAN OF CARE
[2021-09-12] MEDS: ENOXAPARIN SODIUM 30 MG/0.3 ML DISP.SYRIN SQ SCH (08:30)
[2021-09-12] MEDS ORDERED: AZITHROMYCIN 250 MG TABLET PO SCH (09:00)
[2021-09-12] MEDS ORDERED: PANTOPRAZOLE SODIUM 40 MG VIAL IV SCH (09:00)
[2021-09-12 11:40] VITALS: BP 124/62
--- NOTE | 2021-09-12 11:55 | NUR ---
SEEN BY HOSPITALIST FOR FOLLOW-UP SEE NOTES
--- NOTE | 2021-09-12 12:00 | NUR ---
no acute change from morning assessment, patient remains afebrile, continue po antibiotic as ordered no signs of allergy reaction.
[2021-09-12 13:00] VITALS: BP 142/54
[2021-09-12] MEDS ORDERED: FLEET ENEMA 133 ML BOTTLE RC PRN (13:30)
[2021-09-12] MEDS ORDERED: ACETAMINOPHEN 325 MG TABLET-SA PATIENTS-PAIN ONLY PO PRN (13:30)
[2021-09-12] MEDS ORDERED: MAG HYDROX/AL HYDROX/SIMETH 30 ML LIQUID UDC PO PRN (13:30)
[2021-09-12] MEDS ORDERED: FUROSEMIDE 40 MG/4 ML VIAL IV ONE (13:45)
--- NOTE | 2021-09-12 16:28 | NUR ---
patient remains to be very confused and disoriented x3, requires constant supervision for safety
[2021-09-12] MEDS ORDERED: Medication Not On Formulary EA (Cran/Vitc/Mannose/Inulin/Brom (Uti-Stat Liquid) 30 ML) PO SCH (17:00)
[2021-09-12] MEDS: DOCUSATE SODIUM 100 MG CAPSULE PO SCH (17:00)
[2021-09-12] MEDS: ALBUTEROL SULFATE 2.5 MG/3 ML NEBU IH SCH (19:30)
--- NOTE | 2021-09-12 19:54 | NUR ---
Pt sitting up in anshul chair. Alert x 1, confused. Needs to be reoriented. On 2L NC saturating at 93%. No signs of acute distress. Call lights within reach. Safety measures implemented. Will closely monitor for patient safety.
[2021-09-12 20:00] VITALS: BP 157/61
[2021-09-13] MEDS: CEFTRIAXONE 1 G in IV DEXTROSE 5% 50 ML IV SCH (00:25)
[2021-09-13] MEDS: ALBUTEROL SULFATE 2.5 MG/3 ML NEBU IH SCH ×4 (02:12→20:57)
[2021-09-13 04:00] VITALS: BP 136/58
[2021-09-13] MEDS: PANTOPRAZOLE SODIUM 40 MG TABLET.DR PO SCH (06:09)
[2021-09-13 06:26] LABS: HEMATOCRIT 34.3 % (31.2-41.9); MEAN CORPUSCULAR HEMOGLOBIN 31.4 uug (24.7-32.8); PLATELET COUNT (AUTO) 179 K/uL (179-408)
[2021-09-13 06:45] LABS: CREATININE 1.1 mg/dL (0.6-1.3); MAGNESIUM 2.4 mg/dL (1.8-2.4); PHOSPHOROUS 4.2 mg/dL (2.5-4.9); POTASSIUM 3.8 mmol/L (3.5-5.1)
--- NOTE | 2021-09-13 06:48 | NUR ---
Pt slept intermittently through the night. Pt attempted to pull out IV multiple times. AO x 1, confused. Needs to be reoriented. On room air saturating at 94%. No signs of acute distress. ABX given and tolerated. Compliant with medication. Call lights within reach. Safety measures maintained.
[2021-09-13 07:26] LABS: THYROID STIMULATING HORMONE 1.677 mIU/mL (0.358-3.740)
[2021-09-13] MEDS: ENOXAPARIN SODIUM 30 MG/0.3 ML DISP.SYRIN SQ SCH (07:59)
[2021-09-13] MEDS: AMIODARONE HCL 200 MG TABLET PO SCH (08:05)
[2021-09-13] MEDS: DOCUSATE SODIUM 100 MG CAPSULE PO SCH ×2 (08:05→16:19)
[2021-09-13] MEDS: ASPIRIN 81 MG TAB.CHEW PO SCH (08:05)
[2021-09-13] MEDS: CHOLECALCIFEROL 1,000 UNIT TABLET PO SCH (08:05)
[2021-09-13] MEDS: FLUTICASONE/VILANTEROL 1 EACH BLST.W.DEV IH SCH (08:06)
[2021-09-13] MEDS ORDERED: AMIODARONE HCL 200 MG PO SCH (09:00)
[2021-09-13] MEDS ORDERED: Medication Not On Formulary EA (Cholecalciferol (Vitamin D3) (Vitamin D CAPSULE) 2,000 U PO SCH (09:00)
[2021-09-13 11:08] VITALS: BP 117/45
[2021-09-13] MEDS: DOXYCYCLINE HYCLATE 100 MG TABLET PO SCH ×2 (11:52→20:40)
[2021-09-13 15:06] VITALS: BP 129/62
--- NOTE | 2021-09-13 16:30 | NUR ---
no events noted during shift
[2021-09-13 20:00] VITALS: BP 136/51
--- NOTE | 2021-09-13 20:13 | NUR ---
Patient screaming and yelling, restless and agitated, throwing food on the floor and pulled out her IV. Informed INDUSTRIAL THERAPIST Reyes, awaiting for any new order.
--- NOTE | 2021-09-13 20:24 | NUR ---
SUPERVISOR RECORD PRESS Keh with order to give patient Ativan 1mg IVx1 dose. Order read back and verified. Will carry out order.
[2021-09-13] MEDS ORDERED: LORAZEPAM 2 MG/1 ML VIAL IV ONE (21:30)
[2021-09-14] MEDS: ALBUTEROL SULFATE 2.5 MG/3 ML NEBU IH SCH ×4 (00:34→19:30)
[2021-09-14] MEDS: CEFTRIAXONE 1 G in IV DEXTROSE 5% 50 ML IV SCH (00:59)
--- NOTE | 2021-09-14 05:41 | NUR ---
Patient slept well and no further anxiety noted after Ativan 1mg via IV given. IV site on left wrist remains intact and patent. No adverse reaction noted from IV antibiotics.
[2021-09-14] MEDS: PANTOPRAZOLE SODIUM 40 MG TABLET.DR PO SCH (06:07)
[2021-09-14 06:34] LABS: HEMATOCRIT 32.8 % (31.2-41.9); MEAN CORPUSCULAR HEMOGLOBIN 32.2 uug (24.7-32.8); MEAN CORPUSCULAR VOLUME 95.3 fL (75.5-95.3); PLATELET COUNT (AUTO) 195 K/uL (179-408)
[2021-09-14 06:46] LABS: POTASSIUM 3.8 mmol/L (3.5-5.1)
--- NOTE | 2021-09-14 07:20 | NUR ---
pt removed iv access.
[2021-09-14] MEDS: DOCUSATE SODIUM 100 MG CAPSULE PO SCH ×2 (08:50→16:50)
[2021-09-14] MEDS: DOXYCYCLINE HYCLATE 100 MG TABLET PO SCH ×2 (08:50→20:09)
[2021-09-14] MEDS: CHOLECALCIFEROL 1,000 UNIT TABLET PO SCH (08:50)
[2021-09-14] MEDS: ASPIRIN 81 MG TAB.CHEW PO SCH (08:50)
[2021-09-14] MEDS: ENOXAPARIN SODIUM 30 MG/0.3 ML DISP.SYRIN SQ SCH (08:52)
[2021-09-14] MEDS: AMIODARONE HCL 200 MG TABLET PO SCH (08:55)
[2021-09-14] MEDS: FLUTICASONE/VILANTEROL 1 EACH BLST.W.DEV IH SCH (08:56)
[2021-09-14 11:05] VITALS: BP 143/65
--- NOTE | 2021-09-14 11:47 | NUR ---
Pt is awake sitting in chair. A/o x 2, confused yells out. Redirected pt but unable to comprehend, forgetful and repetitive. Pt able to take medications orally. No aspiration or choking noted. Plan is to discharge pt back to [facility]. Physical therapy evaluation completed today. Comfort measures provided, call light within reach. Will continue to monitor.
[2021-09-14] MEDS ORDERED: LORAZEPAM 1 MG TABLET PO ONE (13:45)
[2021-09-14 15:23] VITALS: BP 144/49
[2021-09-14 20:00] VITALS: BP 134/51
[2021-09-15] MEDS: ALBUTEROL SULFATE 2.5 MG/3 ML NEBU IH SCH ×3 (00:30→13:30)
[2021-09-15] MEDS: CEFTRIAXONE 1 G in IV DEXTROSE 5% 50 ML IV SCH (01:07)
[2021-09-15 06:00] VITALS: BP 149/65
[2021-09-15] MEDS: PANTOPRAZOLE SODIUM 40 MG TABLET.DR PO SCH (06:22)
[2021-09-15] MEDS: DOCUSATE SODIUM 100 MG CAPSULE PO SCH (08:15)
[2021-09-15] MEDS: ASPIRIN 81 MG TAB.CHEW PO SCH (08:15)
[2021-09-15] MEDS: DOXYCYCLINE HYCLATE 100 MG TABLET PO SCH (08:16)
[2021-09-15] MEDS: ENOXAPARIN SODIUM 30 MG/0.3 ML DISP.SYRIN SQ SCH (08:17)
[2021-09-15] MEDS: CHOLECALCIFEROL 1,000 UNIT TABLET PO SCH (08:25)
[2021-09-15] MEDS: FLUTICASONE/VILANTEROL 1 EACH BLST.W.DEV IH SCH (08:57)
[2021-09-15] MEDS: AMIODARONE HCL 200 MG TABLET PO SCH (08:57)
[2021-09-15] MEDS ORDERED: MEROPENEM 1 G in IV NORMAL SALINE 100 ML IV ONE (11:00)
[2021-09-15 11:43] VITALS: BP 132/43
[2021-09-15] MEDS ORDERED: MERO1VIA23 IV (12:42)
[2021-09-15] MEDS ORDERED: CHOL100062 PO (12:42)
[2021-09-15] MEDS ORDERED: AMIO200T6 PO (12:42)
[2021-09-15 16:18] VITALS: BP 121/52
--- NOTE | 2021-09-15 17:00 | NUR ---
Patient discharged to [facility]. Patient AOx1-2. On room air. No signs of acute distress. Patient vital signs BP 122/66. HR 78. RR 16. Belongings list accounted for. ID armband removed. Nursing report given to SINTIA eDlcid of [facility].
[2021-09-15] MEDS ORDERED: MEROPENEM 1 G in IV NORMAL SALINE 100 ML IV SCH (23:00)
== END 2021-09-15 17:00 | DRG 193 ==
LOC: ER 20:50 → TELE3 09-12 04:21 → MEDSURG3 09-12 05:35
PROVIDERS: ADMIT Nurse Practitioner Acute Care; ATTEND Nurse Practitioner Acute Care
DX: J15.9 Unspecified bacterial pneumonia (principal); N17.0 Acute kidney failure with tubular necrosis; G93.41 Metabolic encephalopathy; N39.0 Urinary tract infection, site not specified; J44.0 Chronic obstructive pulmonary disease with (acute) lower respiratory infection; Z16.12 Extended spectrum beta lactamase (ESBL) resistance; B96.20 Unspecified Escherichia coli [E. coli] as the cause of diseases classified elsewhere; I48.0 Paroxysmal atrial fibrillation; I25.10 Atherosclerotic heart disease of native coronary artery without angina pectoris; Z66 Do not resuscitate; E11.9 Type 2 diabetes mellitus without complications; E78.5 Hyperlipidemia, unspecified; R53.1 Weakness; R55 Syncope and collapse; F03.90 Unspecified dementia, unspecified severity, without behavioral disturbance, psychotic disturbance, mood disturbance, and anxiety; W19.XXXA Unspecified fall, initial encounter; Y93.9 Activity, unspecified; Y92.129 Unspecified place in nursing home as the place of occurrence of the external cause; Z20.822 Contact with and (suspected) exposure to COVID-19; I50.9 Heart failure, unspecified; I11.0 Hypertensive heart disease with heart failure; R29.6 Repeated falls
CPT/HCPCS: 36415; 70450; 71045; 72125; 73521; 83605; 83735; 84100; 84443; 84484; 85025; 85730; 87040; 87077; 87086; 93005; 94640; 94664; 97161; A4663; C1758; C9113; G0378; G0480; J0456; J0696; J1650; J1940; J2060; J2185; J3486; J3490; J7030; J7040; J7050; J7060; Q0144